=== PATIENT | female | born 1930 | race Caucasian/White ===

== ENCOUNTER 2016-11-19 21:11 | Inpatient (IN) | payer MEDICARE, OTHER ==
[~2016-11-19] VITALS: Ht 160 cm; Wt 51.3 kg
[2016-11-19] MEDS ORDERED: IV NS 0.9% 500 ML IV ONE (21:16)
[2016-11-19] MEDS ORDERED: IV SET PRIMARY 1 EA INFUS.SET MC ONE ×2 (21:16→22:10)
--- NOTE | 2016-11-19 21:16 | NUR ---
PT BIBRA FROM SNF TO ER BED 05. HERE FOR RESPIRATORY DISTRESS. NOTED TO BE HYPOXIC AND TACHY TODAY. PT WAS SATTING AT 80'S PER REPORT. ON NON REBREATHER REFRIGERATOR CRATER SATTING AT LOW 90'S. PT FEBRILE W/ RECTAL TEMP OF 101 REFRIGERATOR CRATER. GOWNED AND PLACED ON MONITOR. WILL MONITOR CLOSELY.
[2016-11-19] MEDS ORDERED: ACETAMINOPHEN 650 MG/SUPP.RECT RC ONE ×2 (21:17→21:30)
--- NOTE | 2016-11-19 21:18 | NUR ---
DR PERDOMO AT BEDSIDE FOR EVAL.
[2016-11-19] MEDS ORDERED: IV NS 0.9% 500 ML BAG IV ONE (21:30)
[2016-11-19 21:32] LABS: ABG BASE EXCESS 0.5 mmol/L; ABG OXYGEN SATURATION 97.4 % (92.0-98.5); ABG PCO2 38.7 mmHg (35.0-45.0); ABG PH 7.424 (7.350-7.450); ABG PO2 101.1 mmHg (75.0-100.0); AaDO2 573.2 mmHg; COHb 1.1 % (0.5-1.5); MetHb 0.4 % (0.0-1.5); O2Hb 95.9 % (94.0-97.0); SITE, ABG Right Radial; VENT MODE, BG NRB
--- NOTE | 2016-11-19 21:32 | NUR ---
LEAD RUBY ON RAILS DEVELOPER AT BEDSIDE FOR BLOOD DRAW.
[2016-11-19 21:39] LABS: BASOPHILS # (AUTO) 0.4 /CMM (0.0-0.2); BASOPHILS % (AUTO) 1.8 % (0.0-2.0); EOSINOPHILS # (AUTO) 0.2 /CMM (0.0-0.7); HEMATOCRIT 44 % (33-45); HEMOGLOBIN 13.9 g/dL (11.5-14.8); LYMPHOCYTES # (AUTO) 1.2 /CMM (0.8-4.8); LYMPHOCYTES % (AUTO) 5.4 % (20.0-44.0); MEAN CORPUSCULAR HEMOGLOBIN 29 PG (26.0-33.0); MEAN CORPUSCULAR HGB CONC 31 g/dl (31.0-36.0); MEAN CORPUSCULAR VOLUME 93 fL (82-100); MONOCYTES # (AUTO) 0.5 /CMM (0.1-1.30); MONOCYTES % (AUTO) 2.5 % (2.0-12.0); NEUTROPHILS # (AUTO) 19.2 /CMM (1.8-8.9); NEUTROPHILS % (AUTO) 89.3 % (43.0-81.0); PLATELET COUNT (AUTO) 383 /CMM (150-450); RDW COEFFICIENT OF VARIATION 14.8 (11.5-15.0); RED BLOOD CELL COUNT(AUTO) 4.77 MIL/uL (4.0-5.2); WHITE BLOOD COUNT (AUTO) 21.5 K/uL (4.3-11.0)
[2016-11-19 21:53] LABS: INR 1.14 (0.87-1.13)
[2016-11-19 21:57] LABS: TROPONIN I 0.086 ng/mL (0.00-0.056)
[2016-11-19 21:58] LABS: APPEARANCE,URINE Clear (CLEAR); BLOOD, URINE Trace-intact Ery/uL (NEGATIVE); COLOR,URINE Yellow (YELLOW); KETONES,URINE Trace (NEGATIVE); LEUKOCYTE ESTERASE ,URINE Negative (NEGATIVE); NITRITE, URINE Negative (NEGATIVE); PH,URINE 5.5 (5.0-8.0); PROTEIN,URINE 100 mg/dl (NEGATIVE); UGLUCOSE Negative (NEGATIVE)
[2016-11-19 21:59] LABS: BILIRUBIN,URINE SMALL (NEGATIVE)
[2016-11-19 22:07] LABS: BACTERIA,URINE Many /HPF (None Seen); RBC,URINE 0-2 /HPF (0-2); SQUAMOUS EPITHELIAL CELL,UR Few /HPF (None Seen)
[2016-11-19 22:10] LABS: POTASSIUM 3.5 mmol/L (3.5-5.1); SODIUM SERUM 166 mmol/L (136-145)
[2016-11-19] MEDS ORDERED: IV NS 0.9% 2,000 ML ONE (22:10)
[2016-11-19 22:11] LABS: BILIRUBIN,DIRECT 0.2 mg/dL (0.0-0.2); BILIRUBIN,TOTAL 0.8 mg/dL (0.2-1.0); CALCIUM, SERUM 9.6 mg/dL (8.5-10.1); CARBON DIOXIDE 28 mmol/L (21-32); CHLORIDE 128 mmol/L (98-107); CREATININE 1.3 mg/dL (0.6-1.3); GLUCOSE 182 mg/dL (74-106); UREA NITROGEN, BLOOD 65 mg/dL (7-18)
[2016-11-19 22:12] LABS: ALANINE AMINOTRANSFERASE 32 U/L (12-78); ALBUMIN 2.9 g/dL (3.4-5.0); ALKALINE PHOSPHATASE 64 U/L (46-116); ASPARTATE AMINOTRANSFERASE 24 U/L (15-37); B-TYPE NATRIURETIC PEPTIDE 1532 PG/ML (0-125)
--- NOTE | 2016-11-19 22:16 | NUR ---
DR.RABBANI MEDINA
[2016-11-19] MEDS ORDERED: PIPERACILLIN /TAZOBACTAM 3.375 G VIAL IV ONE (22:20)
[2016-11-19] MEDS ORDERED: IV SET PRIMARY PUMP SET 1 EA INFUS.SET MC ONE (22:20)
[2016-11-19] MEDS ORDERED: VANCOMYCIN 1 GM VIAL ONE (22:20)
[2016-11-19] MEDS ORDERED: IV NS 0.9% 250 ML IV ONE (22:27)
[2016-11-19] MEDS ORDERED: CT SWABBABLE VALVE TRANS SET 1 EA INFUS.SET MC ONE (22:28)
[2016-11-19] MEDS ORDERED: IOHEXOL-350 100 ML VIAL IV ONE (22:28)
[2016-11-19] MEDS ORDERED: IV NS 0.9% 1,000 ML IV ONE (22:30)
[2016-11-19] MEDS ORDERED: IV NS 0.9% 1,000 ML BAG IV ONE (22:30)
[2016-11-19] MEDS ORDERED: ASPIRIN 300 MG/SUPP.RECT RC ONE ×2 (22:30→22:31)
[2016-11-19] MEDS ORDERED: PIPERACILLIN /TAZOBACTAM 3.375 G in IV D5W 50 ML IV ONE (22:30)
[2016-11-19] MEDS ORDERED: VANCOMYCIN 1 GM in IV D5W 250 ML IV ONE (22:30)
--- NOTE | 2016-11-19 22:43 | NUR ---
PT TO RADIOLOGY FOR CT PULMONARY ANGIO VIA [facility].
--- NOTE | 2016-11-19 22:52 | NUR ---
REPORT GIVEN TO ARNIE. PT AWAITING TRANSFER TO FLOOR.
[2016-11-19 23:10] VITALS: BP 111/54
--- NOTE | 2016-11-19 23:10 | NUR ---
STEAM BOX OPERATOR NOTES: MD AWARE OF SODIUM, CHLORIDE, D-DIMER, AND TROPONIN I RESULTS. WILL CONTINUE TO MONITOR PT.
--- NOTE | 2016-11-19 23:10 | NUR ---
BRANCH OPERATION EVALUATION MANAGER NOTES: RECEIVED PT FROM LEONID GANDHI RN. PT ARRIVED WITH 2 BAGS OF IV 0.9% NS 1,000ML WIDE OPEN AND VANCO 1GM IN IV D5W AT 250 ML/HR. PT ALSO ARRIVED WITH NONREBREATHER MASK AND IS SET AT 15LPM. PT HAS IV ON L FOREARM #20G AND IS PATENT AND INTACT AND ALSO HAS IV ON R FOREARM #20G AND IS PATENT AND INTACT. CALL LIGHT WITHIN PT'S REACH. BED KEPT IN LOCKED, LOWEST POSITION, AND SIDE RAILS X 2 UP. WILL CONTINUE TO MONITOR PT.
[2016-11-19] MEDS ORDERED: ONDANSETRON HCL/PF 4 MG/2 ML VIAL IV PRN (23:30)
[2016-11-19] MEDS ORDERED: ACETAMINOPHEN 650 MG/SUPP.RECT RC PRN (23:30)
[2016-11-19] MEDS ORDERED: IV D5W 1,000 ML IV SCH (23:30)
[2016-11-20] VITALS (57 sets, daily range): BP systolic 80–124; BP diastolic 29–63
[2016-11-20] MEDS ORDERED: IV D5W 1,000 ML IV ONE (00:02)
[2016-11-20] MEDS ORDERED: PANTOPRAZOLE 40 MG VIAL ONE (00:03)
[2016-11-20] MEDS: PANTOPRAZOLE 40 MG VIAL IV SCH ×2 (00:12→23:06)
[2016-11-20] MEDS ORDERED: IV SET PRIMARY PUMP SET 1 EA INFUS.SET MC ONE ×4 (00:33→20:54)
[2016-11-20] MEDS ORDERED: ASPI-605 PO (00:38)
[2016-11-20] MEDS ORDERED: ACET325T53 PO (00:38)
[2016-11-20] MEDS ORDERED: AMLO5TAB4 PO (00:38)
[2016-11-20] MEDS ORDERED: MIRT15TA PO (00:38)
[2016-11-20] MEDS ORDERED: FAMO1TAB18 PO (00:38)
[2016-11-20] MEDS ORDERED: LEVO25TA7 PO (00:38)
[2016-11-20] MEDS ORDERED: MAGN400O6 PO (00:38)
[2016-11-20] MEDS ORDERED: ACET325T53 MC (00:38)
[2016-11-20] MEDS ORDERED: FERR-58 PO (00:38)
[2016-11-20] MEDS ORDERED: HALO0.5T4 PO (00:38)
[2016-11-20] MEDS ORDERED: MULT-1119 PO (00:38)
[2016-11-20] MEDS ORDERED: DONE10TA44 PO (00:38)
[2016-11-20] MEDS ORDERED: HEPA10009 SQ (00:38)
[2016-11-20] MEDS ORDERED: SECONDARY IV SET 1 EA INFUS.SET MC ONE ×2 (04:16→12:07)
[2016-11-20] MEDS ORDERED: PIPERACILLIN /TAZOBACTAM 3.375 G in IV D5W 50 ML IV SCH (05:00)
[2016-11-20] MEDS ORDERED: IV D5W 50 ML IV ONE (05:29)
[2016-11-20] MEDS ORDERED: PIPERACILLIN /TAZOBACTAM 3.375 G VIAL IV ONE (05:29)
--- NOTE | 2016-11-20 07:04 | NUR ---
AIRLINE ATTENDANT NOTES: BUSINESS SYSTEMS CONSULTANT INFORMED ME THAT PT WENT FROM SINUS RHYTHM TO A FIB. CHARGE NURSE ARNIE JIMENES. CALLED FOR DR. TERRAZAS AND SPOKE TO ALLISON. DR. TERRAZAS WAS PAGE.
--- NOTE | 2016-11-20 07:30 | NUR ---
FINANCIAL SERVICES ASSOCIATE NOTES: RECEIVED CALL BACK FROM DR. TERRAZAS. NOTIFIED THAT PT WENT FROM SINUS RHYTHM TO A FIB AND IS AWARE THAT PT IS DNR. DR ORDERED CARDIAC CONSULT, PULMONARY CONSULT, REPEAT CHEST X-RAY AND ABG, AND DIGOXIN 0.125 IV X 1 . PT KEPT CLEAN, DRY, AND COMFORTABLE. PT HAS IV ON L FOREARM #20G AND IS PATENT AND INTACT AND ALSO IV ON R FOREARM AND IS PATENT AND INTACT. FLUIDS INFUSING AT IV D5W 1,000ML AT 75 ML/HR. CALL LIGHT WITHIN PT'S REACH. BED KEPT IN LOCKED, LOWEST POSITION, AND SIDE RAILS X 2 UP. ENDORSED TO AM NURSE ABOUT SITUATION.
[2016-11-20] MEDS ORDERED: FAMO20TA8 PO (07:43)
[2016-11-20] MEDS ORDERED: AMIN30LI4 PO (07:43)
[2016-11-20] MEDS ORDERED: MULT-659 PO (07:43)
[2016-11-20] MEDS ORDERED: CHOL100044 PO (07:43)
[2016-11-20] MEDS ORDERED: DONE5TAB34 PO (07:43)
[2016-11-20 07:58] LABS: HEMATOCRIT 34 % (33-45); HEMOGLOBIN 10.7 g/dL (11.5-14.8); LYMPHOCYTES # (AUTO) 1.4 /CMM (0.8-4.8); LYMPHOCYTES % (AUTO) 10.8 % (20.0-44.0); MEAN CORPUSCULAR HEMOGLOBIN 30 PG (26.0-33.0); MEAN CORPUSCULAR HGB CONC 32 g/dl (31.0-36.0); MEAN CORPUSCULAR VOLUME 94 fL (82-100); MONOCYTES # (AUTO) 0.2 /CMM (0.1-1.30); MONOCYTES % (AUTO) 1.9 % (2.0-12.0); NEUTROPHILS # (AUTO) 11.3 /CMM (1.8-8.9); NEUTROPHILS % (AUTO) 87.3 % (43.0-81.0); PLATELET COUNT (AUTO) 257 /CMM (150-450); RED BLOOD CELL COUNT(AUTO) 3.57 MIL/uL (4.0-5.2)
[2016-11-20] MEDS ORDERED: DIGOXIN INJ 0.5 MG/2 ML AMPUL IV ONE (08:00)
--- NOTE | 2016-11-20 08:00 | NUR ---
REPORT RECEIVED. PM NURSE RECEIVED ORDERS FOR DIGOXIN IVP 0.125 MG X1 NOW. PT RHYTHM CURRENTLY AT . [facility]. ORDERS WERE NOTED AND WILL BE CARRIED OUT. PT NOTED WITH BLOOD PRESSURE OF 74/46. HR FLUCTUATING BETWEEN 130'S-160'S. PT ON NONREBREATHER MASK AT 15LPM. NOTIFIED RT FOR STAT ABG'S. Addendum: 11/20/16 at 0908 by ABRIL JIMÉNEZ RN DR. BAL MADE AWARE OF BP AND HEART RHYTHM. ORDERS TO ADMINISTER DIGOXIN, AND IF PT IS STILL IN A. FIB. TRANSFER TO ICU.
[2016-11-20 08:19] LABS: CALCIUM, SERUM 8.5 mg/dL (8.5-10.1); CREATININE 0.9 mg/dL (0.6-1.3); MAGNESIUM 2.1 mg/dL (1.8-2.4); PHOSPHORUS 2.1 mg/dL (2.5-4.9)
[2016-11-20 08:23] LABS: ABG BASE EXCESS -2.7 mmol/L; ABG OXYGEN SATURATION 98.8 % (92.0-98.5); ABG PCO2 30.7 mmHg (35.0-45.0); ABG PH 7.443 (7.350-7.450); AaDO2 275.2 mmHg; COHb 0.1 % (0.5-1.5); MetHb 1.2 % (0.0-1.5); O2Hb 97.5 % (94.0-97.0); SITE, ABG Left Brachial; VENT MODE, BG NRB
--- NOTE | 2016-11-20 08:28 | NUR ---
DIGOXIN 0.125MG IVP X1 ADMINISTERED. MD AWARE. HEART RHYTHM RECORDED VIA TELE MONITOR. DR. BAKER MADE AWARE. PT WAS SEEN BY DR. BAKER BEFORE TRANSFER TO ICU. WILL PLACE ORDERS WHEN PATIENT IN ICU.
[2016-11-20] MEDS ORDERED: FEE PK DOSING 1 MIN EA MC ONE (08:52)
[2016-11-20] MEDS ORDERED: IV NS 0.9% 1,000 ML IV PRN (08:55)
--- NOTE | 2016-11-20 08:55 | NUR ---
PT TRANSFERRED TO ICU AND ENDORSED CARE TO MARIA LUZ. NOTIFIED MARIA LUZ OF THE CRITICAL LAB RESULT OF SODIUM BEING AT 162. MD JIMENES.
[2016-11-20] MEDS ORDERED: AMIODARONE 900 MG in IV D5W 500 ML IV PRN ×2 (09:00→10:36)
[2016-11-20] MEDS ORDERED: AMIODARONE 150 MG in IV D5W 100 ML IV ONE (09:30)
[2016-11-20] MEDS: POTASSIUM CL. PREMIX PERIPHER. 50 ML IV SCH ×4 (09:40→13:31)
[2016-11-20 09:43] LABS: TROPONIN I 0.085 ng/mL (0.00-0.056)
[2016-11-20 09:44] LABS: THYROID STIMULATING HORMONE 1.324 uIU/mL (0.358-3.74)
[2016-11-20] MEDS: IV D5/0.45 NACL 1,000 ML IV PRN ×2 (10:07→22:33)
[2016-11-20] MEDS ORDERED: MAGNESIUM HYDROXIDE 30 ML UDC PO PRN (11:00)
[2016-11-20] MEDS ORDERED: AMIODARONE 900 MG in IV D5W 482 ML IV PRN (11:00)
--- NOTE | 2016-11-20 11:50 | NUR ---
INTENSIVE CARE ANAESTHETIST NOTE Noted patient with SBP 80's, made Dr. Sy aware, with order to given 500mL IV bolus, carried out, will continue to monitor.
[2016-11-20] MEDS ORDERED: IV NS 0.9% 500 ML IV STA (11:59)
[2016-11-20] MEDS ORDERED: Z GUARD REMEDY 2 OZ OINT TP PRN (13:00)
[2016-11-20] MEDS: PIPERACILLIN /TAZOBACTAM 2.25 G in IV D5W 50 ML IV SCH ×2 (13:24→21:00)
--- NOTE | 2016-11-20 15:58 | NUR ---
SUPERVISING PRODUCER NOTE 0850: Received patient from Tele unit for AFib RVR and fluctuating SBP 70-120's. Patient opens eyes but does not follow commands. Afib on and off, SR 70 to Afiib 120-160's. Awaiting Dr. Anderson's order. PIVs intact. Placed on 2LPM of O2 via NC, Sat 99%. 0930: S/E by dr. Suggs, with order to place NGT and start on 250mL water flushes q6 for high Sodium and insert Reyes cath. 1030: Able to place left NGT (verified with Monica GROVE) and Reyes cath, S/E by Dr. Sy, changed IVF from NS to D51/2 NS @ 100mLs/hr for elevated Na. 1200: IV Bolus done, patient with borderline SBP 90's. Will continue to monitor. 1300: Cleaned, patient, no BM at this time, placed patient on KCI mattress for sacral decub. 1530: No any significant changes noted at this time, continue Amio drip for on and off Afib. SBP borderline 90's.
[2016-11-20] MEDS ORDERED: K PHOS NEUTRAL 250 MG TABLET PO ONE (16:30)
[2016-11-20] MEDS ORDERED: VANCOMYCIN 500 MG in IV D5W 100 ML IV SCH (17:00)
[2016-11-20] MEDS ORDERED: NEUTRA PHOS 1 POWD.PACKET NG ONE (17:00)
[2016-11-20] MEDS ORDERED: IV NS 0.9% 500 ML IV ONE (18:00)
--- NOTE | 2016-11-20 18:04 | NUR ---
FORGE TENDER NOTE Paged Dr. Polanco and made aware patient still with episodes of SBP 80's, obtained order for 500mL IV bolus, insert PICC line and may start on Neosynephrine if bolus ineffective. Dr. Anderson also aware for low BP, agreed for Arsen. Spoke with Kaz via phone and given consent for PICC line insertion, witnessed by CN. Nurse sup aware for the PICC insertion, awaiting PICC line nurse.
--- NOTE | 2016-11-20 19:30 | NUR ---
ADMINISTRATIVE ASSISTANT COORDINATOR: RECEIVED PT ALERT AND AWAKE. ON 2L 02 VIA NC WT NO ACUTE DISTRESS. NO C/O PAIN AT THIS TIME. ABLE TO MAKE NEEDS KNOWN AND FOLLOW SIMPLE COMMANDS. UNCONTROLLED A. FIB ON MONITOR, WT AMIO DRIP RUNNING AT 0.5MG/MIN. RUNNING D5 1/2 NS AT 100ML/HR. F/C PATENT AND INTACT DRAINING JONATAN COLORED URINE. RT. NGT INTACT CLAMPED AND VERIFIED PLACEMENT. ONGOING ASSESSMENT FOR HYPOTENSION. NS 500ML BOLUS ADMINISTERED AND WILL START SUN NEEDED. FOLLOWED UP WT BAY STOCKER RE PICC LINE NURSE AND STILL AWAITING FEEDBACK AT THIS TIME. SAFETY PRECAUTION NOTED. WILL CONTINUE TO MONITOR. Addendum: 11/21/16 at 0125 by FRANCO LUNA RN CORRECTION: PT HAS BEEN SINUS RHYTHM WHEN RECEIVED. HOWEVER, A LOT OF ARTIFACTS ARE OBSERVED WT INTERMITTENT INCORRECT VERY HIGH HR MOST LIKELY DUE TO UPPER CHEST/EXTREMITY TREMORS. NGT IS ON THE LEFT NARE.
[2016-11-20 21:00] LABS: OSMOLALITY,URINE 835 mOS/kg (340-1090)
[2016-11-20] MEDS: HEPARIN SODIUM, PORCINE 5000 UNITS/1 ML VIAL SQ SCH (21:02)
[2016-11-20 21:07] LABS: URINE SODIUM, RANDOM 51 mmol/l (40-220)
[2016-11-20] MEDS ORDERED: MIRTAZAPINE 15 MG TABLET PO SCH (22:00)
[2016-11-20] MEDS ORDERED: DONEPEZIL 5 MG TABLET PO SCH (22:00)
[2016-11-20] MEDS: PHENYLEPHRINE 40 MG in IV D5W 250 ML IV PRN (22:32)
--- NOTE | 2016-11-20 22:35 | NUR ---
BALL TRUING MACHINE OPERATOR: STARTED NEOSYNEPHRINE AT 10MCG/MIN FOR SBP LESS THAN 90. FF-UP WT STOCK RECEIVER KOLE FOR PICC LINE NURSE AND SAID INSERTION WILL BE DONE IN AM. WILL INFUSE VIA PERIPHERAL LINE AND WILL MONITOR FOR S/S OF INFILTRATION. CHARGE NURSE ED MADE AWARE.
[2016-11-21] VITALS (96 sets, daily range): BP systolic 78–157; BP diastolic 37–117
[2016-11-21] MEDS: PIPERACILLIN /TAZOBACTAM 2.25 G in IV D5W 50 ML IV SCH ×2 (04:20→12:15)
[2016-11-21 05:00] LABS: EOSINOPHILS % (AUTO) 0.1 % (0.0-6.0); HEMATOCRIT 32 % (33-45); HEMOGLOBIN 10.4 g/dL (11.5-14.8); LYMPHOCYTES # (AUTO) 1.2 /CMM (0.8-4.8); LYMPHOCYTES % (AUTO) 5.7 % (20.0-44.0); MEAN CORPUSCULAR HEMOGLOBIN 30 PG (26.0-33.0); MEAN CORPUSCULAR HGB CONC 32 g/dl (31.0-36.0); MEAN CORPUSCULAR VOLUME 94 fL (82-100); MONOCYTES # (AUTO) 0.1 /CMM (0.1-1.30); MONOCYTES % (AUTO) 0.2 % (2.0-12.0); NEUTROPHILS # (AUTO) 19.5 /CMM (1.8-8.9); PLATELET COUNT (AUTO) 275 /CMM (150-450); RDW COEFFICIENT OF VARIATION 15.3 (11.5-15.0); RED BLOOD CELL COUNT(AUTO) 3.45 MIL/uL (4.0-5.2); WHITE BLOOD COUNT (AUTO) 20.7 K/uL (4.3-11.0)
[2016-11-21 05:14] LABS: ALBUMIN 1.9 g/dL (3.4-5.0); BILIRUBIN,TOTAL 0.8 mg/dL (0.2-1.0); CALCIUM, SERUM 7.8 mg/dL (8.5-10.1); CREATININE 0.7 mg/dL (0.6-1.3); MAGNESIUM 1.4 mg/dL (1.8-2.4); PHOSPHORUS 1.9 mg/dL (2.5-4.9); POTASSIUM 3.1 mmol/L (3.5-5.1); TOTAL PROTEIN, SERUM 5.5 g/dL (6.4-8.2)
[2016-11-21 05:16] LABS: TROPONIN I 0.056 ng/mL (0.00-0.056)
--- NOTE | 2016-11-21 05:30 | NUR ---
VESSEL ORDINARY SEAMAN: STILL ON NEOSYNEPHRINE AT 10MCG/MIN WT NO S/S OF INFILTRATION ON IV SITE. NSR WT HR IN THE 60s. ALERT AND AWAKE. ABLE TALK CLEARLY WT CONFUSION & OBEY SIMPLE COMMANDS. HAD SMALL AMT. OF DARK BROWN (ALMOST BLACK) SOFT FORMED STOOL DURING THE SHIFT. BED BATH GIVEN. TEMP AT 0400=99.4 (AXILLA) WHILE WRAPPED IN BLANKET. BLANKET REMOVED AND RECHECKED AT 30MINS WT 98.1. WILL CONTINUE TO MONITOR.
[2016-11-21 05:43] LABS: BAND % (MANUAL) 1 % (0.0-5.0); EOSINOPHILS % (MANUAL) 1 % (0-4); LYMPHOCYTES % (MANUAL) 7 % (16-48); MONOCYTES % (MANUAL) 3 % (0-11.0); NEUTROPHILS % (MANUAL) 88 (42-76)
--- NOTE | 2016-11-21 06:10 | NUR ---
LEADERSHIP RECRUITER: NOTED WT ANOTHER SMALL AMT. OF DARK BROWN (ALMOST BLACK) SOFT STOOL. SPECIMEN COLLECTED AND WILL ENDORSE TO DAY SHIFT TO OBTAIN ORDER FOR STOOL FOR O.B. PT. REMAINED ALERT AND AWAKE. STILL ON 2L 02 VIA NC WT NO ACUTE DISTRESS. NO C/O PAIN OR EVIDENCE OF DISCOMFORT. SAFETY PRECAUTION NOTED AT ALL TIMES.
[2016-11-21] MEDS ORDERED: Magnesium 1GM/D5W 100ML PREMIX 100 ML IV SCH ×4 (07:13→10:30)
--- NOTE | 2016-11-21 07:45 | NUR ---
ICU/RN PT IS IN THE BED AWAKE,ALERT-1.HAS DEMENTIA.ON 2L N/C SAT O2-98%.ON AMIODARONE DRIP.AND NEOSYNEPHRINE DRIP.NG TUBE CLAMPED.PT IS NPO.F/C DRAINING WITH MINIMAL AMOUNT YELLOW URINE.REDNESS ON DARLENE AREA AND LOWER BACK NOTED,WOUND ON SACRAL AREA COVERED WITH DRESSING.PT HAS DARK GREEN-BLACK COLOR STOOL. AM CARE PROVIDED.REPOSITION FOR COMFORT.
[2016-11-21] MEDS ORDERED: POTASSIUM CHLORIDE 20 MEQ TAB.PRT.SR PO SCH (08:00)
[2016-11-21] MEDS: CHOLECALCIFEROL 1,000 UNIT TABLET (VIT D3) PO SCH (08:34)
[2016-11-21] MEDS: PROSOURCE / PROSTAT (PYXIS) 30 ML UDC GT SCH (08:34)
[2016-11-21] MEDS: AMIODARONE HCL 200 MG TABLET PO SCH ×2 (08:35→16:22)
[2016-11-21] MEDS: FAMOTIDINE (20 MG) 20 MG TABLET PO SCH (08:35)
[2016-11-21] MEDS: MULTIVIT, IRON, MIN NO. 8, FA 1 TAB TABLET PO SCH (08:35)
[2016-11-21] MEDS: LEVOTHYROXINE SODIUM 25 MCG TABLET PO SCH (08:35)
[2016-11-21] MEDS: ASPIRIN EC 81 MG TABLET.DR PO SCH (08:35)
[2016-11-21] MEDS: HEPARIN SODIUM, PORCINE 5000 UNITS/1 ML VIAL SQ SCH ×2 (08:37→20:39)
[2016-11-21] MEDS ORDERED: AMLODIPINE BESYLATE 5 MG TABLET PO SCH (09:00)
[2016-11-21] MEDS ORDERED: POTASSIUM CHLORIDE 20 MEQ POWDER PACKET GT ONE (09:00)
[2016-11-21] MEDS ORDERED: HALOPERIDOL 1 MG TABLET PO SCH (09:00)
[2016-11-21] MEDS ORDERED: FERROUS SULFATE (325 MG) 325 MG/TAB TABLET PO SCH (09:00)
--- NOTE | 2016-11-21 09:00 | NUR ---
ICU/RN DUE MEDS ARE GIVEN ORDERED.LABS REVIEW.MD NOTIFIED.NEW ORDERS RECEIVED.NEW PICC LINE ON THE RIGHT UPPER ARM PLACED.
[2016-11-21] MEDS ORDERED: SECONDARY IV SET 1 EA INFUS.SET MC ONE ×2 (09:09→19:07)
[2016-11-21] MEDS: Magnesium 1GM/D5W 100ML PREMIX 100 ML IV SCH ×2 (09:25→10:31)
[2016-11-21] MEDS: HYDROGEL DRESSING 90 GM TUBE TP SCH (09:25)
[2016-11-21] MEDS ORDERED: Sodium Phosphate 15 MMOL in IV D5W 250 ML IV ONE (10:00)
--- NOTE | 2016-11-21 10:30 | NUR ---
ICU/RN AMIODARONE DRIP IS OVER .
[2016-11-21] MEDS ORDERED: IV SET PRIMARY PUMP SET 1 EA INFUS.SET MC ONE (11:45)
[2016-11-21] MEDS: VANCOMYCIN 0.75 GM in IV D5W 250 ML IV SCH (12:14)
[2016-11-21] MEDS: IV D5/0.45 NACL 1,000 ML IV PRN ×2 (14:05→23:58)
[2016-11-21] MEDS: DAKINS QUARTER STRENGTH (0.125%) 480 ML BOTTLE TOP SCH (15:20)
--- NOTE | 2016-11-21 16:10 | NUR ---
ICU/RN PM CARE PROVIDED.WOUND DRESSING DONE ORDERED.DUE MEDS ARE GIVEN ORDERED.REPOSITION FOR COMFORT.
[2016-11-21] MEDS: LACTOBACILLUS RHAMNOSUS GG 1 EACH CAP.SPRINK GT SCH (16:21)
[2016-11-21] MEDS: PHENYLEPHRINE 40 MG in IV D5W 250 ML IV PRN ×2 (17:08→20:42)
[2016-11-21] MEDS: MEROPENEM 500 MG in IV NS 0.9% 50 ML IV SCH (19:11)
--- NOTE | 2016-11-21 19:30 | NUR ---
REPEATER OPERATOR: RECEIVED PT ALERT AND AWAKE, VERBALLY RESPONSIVE AND ABLE TO FOLLOW SIMPLE COMMANDS. ON 2L OW VIA NC WT NO ACUTE DISTRESS. NO C/O PAIN OR EVIDENCE OF DISCOMFORT. SR ON ALIGNER BARREL AND RECEIVER. CONTINUE ON NEOSYNEPHRINE AT 80MCG/MIN TO KEEP SBP ABOVE 90. TOLERATING D5 1/2 NS AT 100ML/HR WT VIA JOSELYN PICC LINE. NO REDNESS/SWELLING NOTED. LEFT NGT CLAMPED AT THIS TIME. GOOD URINE OUTPUT VIA F/C. HOB ELEVATED. SAFETY PRECAUTION NOTED. WILL CONTINUE TO MONITOR.
[2016-11-21] MEDS: METRONIDAZOLE 500 MG TABLET PO SCH (20:38)
--- NOTE | 2016-11-21 22:30 | NUR ---
FUNERAL SERVICE MANAGER: HAD EPISODE OF MODERATE AMT. DARK BROWN SOFT-LIQUID STOOL. SPECIMEN COLLECTED FOR C-DIFF. & SACRAL WOUND CULTURE. GOOD SKIN/DARLENE CARE RENDERED AND TOLERATED WELL. REPOSITIONED FOR COMFORT.
[2016-11-21] MEDS: PANTOPRAZOLE 40 MG VIAL IV SCH (23:57)
[2016-11-22] VITALS (93 sets, daily range): BP systolic 68–141; BP diastolic 17–71
[2016-11-22 04:47] LABS: EOSINOPHILS % (AUTO) 0.1 % (0.0-6.0); HEMATOCRIT 30 % (33-45); HEMOGLOBIN 9.6 g/dL (11.5-14.8); LYMPHOCYTES # (AUTO) 1.7 /CMM (0.8-4.8); LYMPHOCYTES % (AUTO) 7.3 % (20.0-44.0); MEAN CORPUSCULAR HEMOGLOBIN 30 PG (26.0-33.0); MEAN CORPUSCULAR HGB CONC 33 g/dl (31.0-36.0); MEAN CORPUSCULAR VOLUME 93 fL (82-100); MONOCYTES # (AUTO) 0.3 /CMM (0.1-1.30); MONOCYTES % (AUTO) 1.3 % (2.0-12.0); NEUTROPHILS # (AUTO) 21.7 /CMM (1.8-8.9); NEUTROPHILS % (AUTO) 91.3 % (43.0-81.0); PLATELET COUNT (AUTO) 291 /CMM (150-450); RDW COEFFICIENT OF VARIATION 14.9 (11.5-15.0); RED BLOOD CELL COUNT(AUTO) 3.19 MIL/uL (4.0-5.2); WHITE BLOOD COUNT (AUTO) 23.8 K/uL (4.3-11.0)
[2016-11-22 05:08] LABS: ALBUMIN 1.5 g/dL (3.4-5.0); BILIRUBIN,TOTAL 0.5 mg/dL (0.2-1.0); CALCIUM, SERUM 7.4 mg/dL (8.5-10.1); CREATININE 0.6 mg/dL (0.6-1.3); POTASSIUM 3.6 mmol/L (3.5-5.1); TOTAL PROTEIN, SERUM 4.9 g/dL (6.4-8.2)
[2016-11-22 05:12] LABS: TROPONIN I 0.076 ng/mL (0.00-0.056)
[2016-11-22] MEDS: VANCOMYCIN 0.75 GM in IV D5W 250 ML IV SCH ×2 (05:20→23:35)
[2016-11-22] MEDS: METRONIDAZOLE 500 MG TABLET PO SCH ×3 (05:21→20:27)
[2016-11-22] MEDS: MEROPENEM 500 MG in IV NS 0.9% 50 ML IV SCH ×2 (06:11→17:50)
[2016-11-22] MEDS: PHENYLEPHRINE 40 MG in IV D5W 250 ML IV PRN ×2 (06:13→20:58)
--- NOTE | 2016-11-22 06:50 | NUR ---
GENERAL ROAD PRODUCTION MANAGER: NO CANDELARIA AT THIS TIME. VS WITHIN HER BASELINE. NO ACUTE DISTRESS, NO C/O PAIN OR EVIDENCE OF DISCOMFORT. REMAINED AFEBRILE THROUGHOUT THE SHIFT.
[2016-11-22] MEDS: FAMOTIDINE (20 MG) 20 MG TABLET PO SCH (08:57)
[2016-11-22] MEDS: LEVOTHYROXINE SODIUM 25 MCG TABLET PO SCH (08:57)
[2016-11-22] MEDS: HYDROGEL DRESSING 90 GM TUBE TP SCH (08:57)
[2016-11-22] MEDS: CHOLECALCIFEROL 1,000 UNIT TABLET (VIT D3) PO SCH (08:57)
[2016-11-22] MEDS: ASPIRIN EC 81 MG TABLET.DR PO SCH (08:57)
[2016-11-22] MEDS: MULTIVIT, IRON, MIN NO. 8, FA 1 TAB TABLET PO SCH (08:57)
[2016-11-22] MEDS: PROSOURCE / PROSTAT (PYXIS) 30 ML UDC GT SCH (08:57)
[2016-11-22] MEDS: LACTOBACILLUS RHAMNOSUS GG 1 EACH CAP.SPRINK GT SCH ×2 (08:57→16:12)
[2016-11-22] MEDS: DAKINS QUARTER STRENGTH (0.125%) 480 ML BOTTLE TOP SCH (08:58)
[2016-11-22] MEDS: AMIODARONE HCL 200 MG TABLET PO SCH ×2 (08:58→16:12)
[2016-11-22] MEDS: HEPARIN SODIUM, PORCINE 5000 UNITS/1 ML VIAL SQ SCH ×2 (08:59→20:29)
--- NOTE | 2016-11-22 09:00 | NUR ---
MANUFACTURING ENGINEER PAINT Informed Dr. Ludwig of patient NPO status. ordered swallow evaluation and to order recommended diet.
[2016-11-22] MEDS ORDERED: Sodium Phosphate 15 MMOL in IV D5W 250 ML IV ONE (14:00)
--- NOTE | 2016-11-22 16:12 | NUR ---
ASSOCIATE CHEMIST Amiodarone PO held due to HR. Bradycardia as low as 40's. Blood pressure normotensive with low dose neosynephrine. Unable to tolerate titration.
[2016-11-22] MEDS ORDERED: IV NS 0.9% 250 ML IV ONE (16:18)
--- NOTE | 2016-11-22 19:30 | NUR ---
RN INITIAL NOTES RECEIVED PT AWAKE ON BED, A/O X1 ONLY, PASSIVE, SELECTIVELY ON VERBAL RESPONSES. ON 2L NASAL CANNULA SATURATING WELL, NO S/S OF RESP DISTRESS. CURRENTLY SR ON THE MONITOR, HR 60'S. ON SUN DRIP @ 25MCG/MIN TO KEEP SBP > 90. URBAN CATH INTACT. LEFT NARE NGT IS CLAMPED. PT HAS LEFT FOREARM 20G, LEFT ARM 18G, AND RIGHT UPPER ARM PICC, ALL FLUSHED AND PATENT, NO S/S OF INFILTRATION/INFECTION, DRESSINGS CDI. BED LOW AND LOCKED, SIDERAILS UP, CALL LIGHT WITHIN REACH. WILL MONITOR
[2016-11-22] MEDS: PANTOPRAZOLE 40 MG VIAL IV SCH (23:35)
[2016-11-23] VITALS (99 sets, daily range): BP systolic 59–144; BP diastolic 31–72
[2016-11-23 04:44] LABS: EOSINOPHILS # (AUTO) 0.1 /CMM (0.0-0.7); EOSINOPHILS % (AUTO) 0.3 % (0.0-6.0); HEMATOCRIT 30 % (33-45); HEMOGLOBIN 9.7 g/dL (11.5-14.8); LYMPHOCYTES # (AUTO) 1.8 /CMM (0.8-4.8); MEAN CORPUSCULAR HEMOGLOBIN 30 PG (26.0-33.0); MEAN CORPUSCULAR HGB CONC 33 g/dl (31.0-36.0); MEAN CORPUSCULAR VOLUME 92 fL (82-100); MONOCYTES # (AUTO) 0.3 /CMM (0.1-1.30); MONOCYTES % (AUTO) 1.1 % (2.0-12.0); NEUTROPHILS # (AUTO) 20.4 /CMM (1.8-8.9); NEUTROPHILS % (AUTO) 90.6 % (43.0-81.0); PLATELET COUNT (AUTO) 299 /CMM (150-450); RDW COEFFICIENT OF VARIATION 15.4 (11.5-15.0); RED BLOOD CELL COUNT(AUTO) 3.27 MIL/uL (4.0-5.2); WHITE BLOOD COUNT (AUTO) 22.6 K/uL (4.3-11.0)
[2016-11-23] MEDS: MEROPENEM 500 MG in IV NS 0.9% 50 ML IV SCH ×2 (05:01→17:26)
[2016-11-23] MEDS: METRONIDAZOLE 500 MG TABLET PO SCH ×3 (05:01→20:03)
[2016-11-23 05:02] LABS: CALCIUM, SERUM 7.6 mg/dL (8.5-10.1); CREATININE 0.5 mg/dL (0.6-1.3); MAGNESIUM 1.7 mg/dL (1.8-2.4); PHOSPHORUS 2.4 mg/dL (2.5-4.9)
[2016-11-23 05:21] LABS: POTASSIUM 2.5 mmol/L (3.5-5.1)
[2016-11-23] MEDS ORDERED: POTASSIUM CHLORIDE 20 MEQ TAB.PRT.SR PO SCH (06:00)
[2016-11-23] MEDS ORDERED: Magnesium 1GM/D5W 100ML PREMIX 100 ML IV ONE (06:06)
[2016-11-23] MEDS ORDERED: POTASSIUM CHLORIDE 20 MEQ POWDER PACKET ONE (06:06)
[2016-11-23] MEDS ORDERED: NEUTRA PHOS 1 POWD.PACKET ONE (06:07)
[2016-11-23] MEDS ORDERED: SECONDARY IV SET 1 EA INFUS.SET MC ONE ×2 (06:11→12:31)
[2016-11-23] MEDS: NEUTRA PHOS 1 POWD.PACKET PO SCH ×2 (06:18→13:51)
[2016-11-23] MEDS: Magnesium 1GM/D5W 100ML PREMIX 100 ML IV SCH ×2 (06:18→08:04)
[2016-11-23] MEDS ORDERED: POTASSIUM CHLORIDE 20 MEQ POWDER PACKET GT ONE ×3 (06:30→08:30)
--- NOTE | 2016-11-23 06:30 | NUR ---
RN CLOSING NOTES PAGED ON-CALL DR FREDDIE LOPES TO NOTIFY CRITICAL LAB VALUE. DR BAKER ON THE FLOOR AND NOTIFIED OF K 2.[address] BAKER PUT IN NEW ORDERS. WILL CARRY OUT. PT REMAINS STABLE OF THE MOMENT. ALL DUE MEDS GIVEN, AM CARE PROVIDED. WILL ENDORSE CONTINUITY OF CARE TO AM RN
[2016-11-23] MEDS: FAMOTIDINE (20 MG) 20 MG TABLET PO SCH (08:05)
[2016-11-23] MEDS: MULTIVIT, IRON, MIN NO. 8, FA 1 TAB TABLET PO SCH (08:05)
[2016-11-23] MEDS: AMIODARONE HCL 200 MG TABLET PO SCH ×2 (08:05→16:16)
[2016-11-23] MEDS: LEVOTHYROXINE SODIUM 25 MCG TABLET PO SCH (08:05)
[2016-11-23] MEDS: LACTOBACILLUS RHAMNOSUS GG 1 EACH CAP.SPRINK GT SCH ×2 (08:05→17:26)
[2016-11-23] MEDS: ASPIRIN EC 81 MG TABLET.DR PO SCH (08:05)
[2016-11-23] MEDS: CHOLECALCIFEROL 1,000 UNIT TABLET (VIT D3) PO SCH (08:05)
[2016-11-23] MEDS: HEPARIN SODIUM, PORCINE 5000 UNITS/1 ML VIAL SQ SCH ×2 (08:06→20:04)
[2016-11-23] MEDS: PROSOURCE / PROSTAT (PYXIS) 30 ML UDC GT SCH (08:06)
[2016-11-23] MEDS: DAKINS QUARTER STRENGTH (0.125%) 480 ML BOTTLE TOP SCH (08:07)
[2016-11-23] MEDS: HYDROGEL DRESSING 90 GM TUBE TP SCH (08:07)
[2016-11-23] MEDS ORDERED: SILVER NITRATE APPLICATOR 1 EA BOX TP STA (12:13)
[2016-11-23] MEDS ORDERED: LIDOCAINE 1%-EPI 1:100,000 20 ML VIAL TP STA (12:13)
[2016-11-23] MEDS ORDERED: IV SET PRIMARY PUMP SET 1 EA INFUS.SET MC ONE (12:26)
[2016-11-23] MEDS: ALBUMIN 25% 25 GM in PREMIX 1 EA IV SCH ×3 (12:31→23:01)
--- NOTE | 2016-11-23 14:40 | NUR ---
WOUND CARE CONSULT: PT SLEEPING AT THIS TIME. WOUND ASSESSMENT NOT DONE AT THIS TIME TO ALLOW PT REST. PT FOLLOWED BY SURGICAL TEAM AND ORDERS FOR WOUND CARE AND SKIN PROTECTION WERE WRITTEN BY TEAM. PT ON FIRST STEP MATTRESS. WILL SEE PT PT CONDITION PERMITS. MD IN AGREEMENT WITH PLAN OF CARE.
--- NOTE | 2016-11-23 16:20 | NUR ---
MANAGER NEONATAL NOTE 0720: Received patient awake, alert to name, able to answer to simple questions, noted with BUE stiffness. On 2LPM of O2 via NC tolerated well. SB 50's on the monitor. With left NGT intact, clamped. With Reyes cath intact, noted with clear frank colored urine drained to BSD. With JOSELYN PICC and PIVs intact. On 20mcg of Arsen. 0830: Replaced K 2.5 with 20mEq x3 doses and Mg 1.7 with 2 bags, am meds given. 1030: Dr. Fontenot made aware that unable to do left side thora for Heparin given in am, said may do tomorrow. 1130: S/E by Dr. Sy, ordered to remove NGT and start on Pureed diet. Removed NGT, patient tolerated well. 1230: S/E by for swallow eval, served lunch but with episodes of pocketing foods on the mouth, Dr. Sy made aware, said will try until tomorrow and will see if needed NGT feeding. Will give Albumin as ordered. 1330: Dr. Nieves rendered sacral wound debridement and send specimen to lab for wound culture. Noted with dark greenish soft stool. 1615: No any significant changes noted at this time, Still noted with humberto 50's, 40's at times. On 20mcq of Arsen, unable to tolerate off Arsen for sustaining SBP 80's without Arsen, will keep on low dose for now.
[2016-11-23] MEDS ORDERED: IV NS 0.9% 250 ML IV ONE (18:01)
[2016-11-23] MEDS: VANCOMYCIN 0.75 GM in IV D5W 250 ML IV SCH (18:06)
[2016-11-23] MEDS: PHENYLEPHRINE 40 MG in IV D5W 250 ML IV PRN (18:34)
--- NOTE | 2016-11-23 19:30 | NUR ---
RN INITIAL NOTES RECEIVED PT AWAKE ON BED, A/O X1 ONLY, PASSIVE, SELECTIVELY ON VERBAL RESPONSES. ON 2L NASAL CANNULA SATURATING WELL, NO S/S OF RESP DISTRESS. CURRENTLY SR ON THE MONITOR, HR 70'S. ON SUN DRIP @ 20MCG/MIN TO KEEP SBP > 90. URBAN CATH INTACT. PATIENT HAS POOR APPETITE, OFFERED PUREED FOOD BUT ONLY TOOK ONE SPOONFUL. PT HAS LEFT FOREARM 20G, LEFT ARM 18G, AND RIGHT UPPER ARM PICC, ALL FLUSHED AND PATENT, NO S/S OF INFILTRATION/INFECTION, DRESSINGS CDI. BED LOW AND LOCKED, SIDERAILS UP, CALL LIGHT WITHIN REACH. WILL MONITOR
[2016-11-23] MEDS: BOOST PLUS FOOD-CHOCLATE 237 ML BOX PO SCH (20:03)
--- NOTE | 2016-11-23 20:05 | NUR ---
RN NOTES HELD SCHEDULED HEPARIN SQ FOR SCHEDULED SURGERY TOMORROW
[2016-11-23] MEDS: PANTOPRAZOLE 40 MG VIAL IV SCH (23:01)
[2016-11-24] VITALS (89 sets, daily range): BP systolic 71–158; BP diastolic 33–75
[2016-11-24 04:50] LABS: BASOPHILS % (AUTO) 0.1 % (0.0-2.0); EOSINOPHILS # (AUTO) 0.1 /CMM (0.0-0.7); EOSINOPHILS % (AUTO) 0.7 % (0.0-6.0); HEMATOCRIT 29 % (33-45); HEMOGLOBIN 9.6 g/dL (11.5-14.8); LYMPHOCYTES # (AUTO) 1.9 /CMM (0.8-4.8); MEAN CORPUSCULAR HEMOGLOBIN 30 PG (26.0-33.0); MEAN CORPUSCULAR HGB CONC 33 g/dl (31.0-36.0); MEAN CORPUSCULAR VOLUME 91 fL (82-100); MONOCYTES # (AUTO) 0.5 /CMM (0.1-1.30); MONOCYTES % (AUTO) 2.6 % (2.0-12.0); NEUTROPHILS # (AUTO) 14.9 /CMM (1.8-8.9); NEUTROPHILS % (AUTO) 85.6 % (43.0-81.0); PLATELET COUNT (AUTO) 294 /CMM (150-450); RDW COEFFICIENT OF VARIATION 14.5 (11.5-15.0); RED BLOOD CELL COUNT(AUTO) 3.21 MIL/uL (4.0-5.2); WHITE BLOOD COUNT (AUTO) 17.4 K/uL (4.3-11.0)
[2016-11-24 05:02] LABS: ALBUMIN 3.1 g/dL (3.4-5.0); BILIRUBIN,TOTAL 0.6 mg/dL (0.2-1.0); CALCIUM, SERUM 8.2 mg/dL (8.5-10.1); CREATININE 0.6 mg/dL (0.6-1.3); MAGNESIUM 2.2 mg/dL (1.8-2.4); PHOSPHORUS 2.6 mg/dL (2.5-4.9); POTASSIUM 3.7 mmol/L (3.5-5.1); TOTAL PROTEIN, SERUM 5.5 g/dL (6.4-8.2)
[2016-11-24] MEDS ORDERED: IV NS 0.9% 250 ML IV ONE (05:04)
[2016-11-24] MEDS: MEROPENEM 500 MG in IV NS 0.9% 50 ML IV SCH ×2 (05:11→17:26)
[2016-11-24] MEDS: METRONIDAZOLE 500 MG TABLET PO SCH ×2 (05:11→12:30)
[2016-11-24] MEDS: ALBUMIN 25% 25 GM in PREMIX 1 EA IV SCH (05:11)
--- NOTE | 2016-11-24 06:30 | NUR ---
RN CLOSING NOTES PT REMAINS STABLE OF THE MOMENT. ALL DUE MEDS GIVEN, AM CARE PROVIDED. WILL ENDORSE CONTINUITY OF CARE TO AM RN
--- NOTE | 2016-11-24 08:22 | NUR ---
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 THERE IS UNDERMINING OF 3CM FROM 6 OCLOCK TO 12 OCLOCK POSITION. PT ALSO NOTED TO HAVE RT DORSAL FOOT DRY ABRASION AND RT MEDIAL FOOT SUSPECTED DEEP TISSUE INJURY, INTACT, BOTH PRESENT ON ADMISSION. 3+ PITTING EDEMA NOTED TO BILATERAL FEET. PT FOLLOWED BY SURGEON & DPM. WOUND CARE ORDERS PER SURGICAL TEAM. WILL SEE PRN. ALL SKIN PROTECTION MEASURES IN PLACE AND DISCUSSED WITH NURSING STAFF. IN AGREEMENT WITH PLAN OF CARE. Addendum: 11/24/16 at 0825 by KATIUSKA HARVEY WNDNU Amended: Links added.
[2016-11-24] MEDS: FAMOTIDINE (20 MG) 20 MG TABLET PO SCH (08:44)
[2016-11-24] MEDS: BOOST PLUS FOOD-CHOCLATE 237 ML BOX PO SCH ×2 (08:44→17:26)
[2016-11-24] MEDS: PROSOURCE / PROSTAT (PYXIS) 30 ML UDC GT SCH (08:44)
[2016-11-24] MEDS: CHOLECALCIFEROL 1,000 UNIT TABLET (VIT D3) PO SCH (08:44)
[2016-11-24] MEDS: MULTIVIT, IRON, MIN NO. 8, FA 1 TAB TABLET PO SCH (08:44)
[2016-11-24] MEDS: DAKINS QUARTER STRENGTH (0.125%) 480 ML BOTTLE TOP SCH (08:45)
[2016-11-24] MEDS: AMIODARONE HCL 200 MG TABLET PO SCH ×2 (08:45→17:00)
[2016-11-24] MEDS: LACTOBACILLUS RHAMNOSUS GG 1 EACH CAP.SPRINK GT SCH ×2 (08:45→17:26)
[2016-11-24] MEDS: LEVOTHYROXINE SODIUM 25 MCG TABLET PO SCH (08:45)
[2016-11-24] MEDS: HYDROGEL DRESSING 90 GM TUBE TP SCH (08:46)
[2016-11-24] MEDS ORDERED: IV SET PRIMARY PUMP SET 1 EA INFUS.SET MC ONE ×2 (11:04→18:42)
[2016-11-24] MEDS: IV NS 0.9% 1,000 ML IV PRN ×2 (11:17→20:36)
[2016-11-24] MEDS: ASPIRIN EC 81 MG TABLET.DR PO SCH (11:19)
[2016-11-24] MEDS: HEPARIN SODIUM, PORCINE 5000 UNITS/1 ML VIAL SQ SCH ×2 (11:19→20:38)
[2016-11-24] MEDS: VANCOMYCIN 0.75 GM in IV D5W 250 ML IV SCH (12:30)
--- NOTE | 2016-11-24 12:52 | NUR ---
MAINTENANCE AND CUSTODIAN SUPERVISOR NOTE 0720: Received patient awake, alert and oriented to self, able to follow some simple commands. With 2LPM of O2 via NC. With JOSELYN PICC and PIVs intact. on Arsen @ 20mcg, will titrate accordingly. SB 50's on the monitor. With norman cath intact, noted with clear yellow urine drained to BSD. 0830: S/E by Dr. andreson, no new order at this time. 0900: Fed patient but only able to get 25 % of the breakfast tray with the boost. 1100: Started patient on IVF NS @ [address] Anderson. 1240: S/E by Dr. Ludwig, made aware that patient still with poor intake and ST recommended NGT feeding for the mean time but MD said will continue feeding with full liquids for now because she is pocketing some pureed food at times. Able to get 30% of the lunch tray. Will continue to monitor patient and titrate Arsen.
[2016-11-24] MEDS: PHENYLEPHRINE 40 MG in IV D5W 250 ML IV PRN (19:13)
--- NOTE | 2016-11-24 20:00 | NUR ---
ICU/RN- PT IN BED ALERT TO NAME, CONFUSED. ABLE TO FOLLOW SIMPLE COMMANDS. ON MONITOR W/ BRADYCARDIA HR IN THE 50S. ON O2 2L/MIN VIA NC W/ O2 SAT 99%. RESP EVEN AND UNLABORED. PT WAS PUT BACK ON SUN 20MCG/MIN FOR SBP IN THE 80S. TOLERATING WELL. WILL TITRATE PER PROTOCOL. URBAN IN PLACE W/ CLEAR AND YELLOW URINE DRAINING WELL TO GRAVITY. REPOSITIONED FOR COMFORT. BED LOW AND IN LOCKED POSITION. WILL MONITOR PT ACCORDINGLY.
[2016-11-24] MEDS: PANTOPRAZOLE 40 MG VIAL IV SCH (23:06)
[2016-11-25] VITALS (93 sets, daily range): BP systolic 82–139; BP diastolic 40–80
[2016-11-25 04:44] LABS: CALCIUM, SERUM 7.5 mg/dL (8.5-10.1); CREATININE 0.5 mg/dL (0.6-1.3); MAGNESIUM 1.7 mg/dL (1.8-2.4); PHOSPHORUS 2.1 mg/dL (2.5-4.9); POTASSIUM 3.5 mmol/L (3.5-5.1)
[2016-11-25 04:46] LABS: BASOPHILS % (AUTO) 0.1 % (0.0-2.0); EOSINOPHILS # (AUTO) 0.2 /CMM (0.0-0.7); EOSINOPHILS % (AUTO) 1.5 % (0.0-6.0); HEMATOCRIT 29 % (33-45); HEMOGLOBIN 9.2 g/dL (11.5-14.8); LYMPHOCYTES # (AUTO) 1.7 /CMM (0.8-4.8); LYMPHOCYTES % (AUTO) 14.3 % (20.0-44.0); MEAN CORPUSCULAR HEMOGLOBIN 30 PG (26.0-33.0); MEAN CORPUSCULAR HGB CONC 32 g/dl (31.0-36.0); MEAN CORPUSCULAR VOLUME 92 fL (82-100); MONOCYTES # (AUTO) 0.4 /CMM (0.1-1.30); MONOCYTES % (AUTO) 3.4 % (2.0-12.0); NEUTROPHILS # (AUTO) 9.5 /CMM (1.8-8.9); NEUTROPHILS % (AUTO) 80.7 % (43.0-81.0); PLATELET COUNT (AUTO) 313 /CMM (150-450); WHITE BLOOD COUNT (AUTO) 11.8 K/uL (4.3-11.0)
[2016-11-25] MEDS: IV NS 0.9% 1,000 ML IV PRN (04:53)
[2016-11-25] MEDS: MEROPENEM 500 MG in IV NS 0.9% 50 ML IV SCH ×2 (05:01→18:11)
[2016-11-25] MEDS: VANCOMYCIN 0.75 GM in IV D5W 250 ML IV SCH ×2 (05:08→17:06)
--- NOTE | 2016-11-25 05:08 | NUR ---
ICU/RN- VANCO TROUGH 22. HELD VANCO DOSE
--- NOTE | 2016-11-25 07:05 | NUR ---
WEB OPERATIONS ADMINISTRATOR- INITIAL NOTE RECEIVED PT A/O X1. ON 2L NC, RESPIRATIONS EVEN AND UNLABORED, NO SOB OR DISTRESS PRESENT, SATURATING AT 97%. BEDSIDE MONITOR REVEALS SINUS NADIR, HR= 55. URBAN CATHETER DRAINING TO GRAVITY CLEAR, YELLOW URINE. IVS PRESENT FOLLOWS: 1) JOSELYN PICC LINE (RUNNING NEOSYNEPHRINE @ 20 MCG/MIN AND NS @ 125 MLS/HR), 2) LFA 20G HL, 3) RFA 20G HL AND 4) LAC 18G HL. ALL IVS FLUSHED, PATENT, INTACT AND FREE OF REDNESS, SWELLING AND INFLAMMATION. SAFETY MEASURES TAKEN: BED LOCKED AND IN LOW POSITION, SIDE RAILS UP X2, BED ALARM ON AND CALL LIGHT WITHIN REACH, WILL CONTINUE TO MONITOR.
[2016-11-25] MEDS ORDERED: FIBERSOURCE HN 1,000 ML BOTTLE GT PRN (07:30)
[2016-11-25] MEDS ORDERED: ENOXAPARIN SODIUM 40 MG/0.4 ML DISP.SYRIN SQ SCH (08:00)
[2016-11-25] MEDS: BOOST PLUS FOOD-CHOCLATE 237 ML BOX PO SCH ×2 (08:00→16:44)
[2016-11-25] MEDS: AMIODARONE HCL 200 MG TABLET PO SCH ×2 (08:10→16:43)
[2016-11-25] MEDS ORDERED: IV NS 0.9% 250 ML IV ONE (08:17)
[2016-11-25] MEDS: Magnesium 1GM/D5W 100ML PREMIX 100 ML IV SCH ×4 (08:38→09:49)
[2016-11-25] MEDS: HYDROCORTISONE SOD SUCCINATE 100 MG/2 ML VIAL IV SCH ×3 (08:40→17:06)
[2016-11-25] MEDS: PROSOURCE / PROSTAT (PYXIS) 30 ML UDC GT SCH (08:42)
[2016-11-25] MEDS: MULTIVIT, IRON, MIN NO. 8, FA 1 TAB TABLET PO SCH (08:42)
[2016-11-25] MEDS: POTASSIUM CHLORIDE 20 MEQ TAB.PRT.SR PO SCH ×3 (08:42→10:41)
[2016-11-25] MEDS: LACTOBACILLUS RHAMNOSUS GG 1 EACH CAP.SPRINK GT SCH ×2 (08:42→17:06)
[2016-11-25] MEDS: LEVOTHYROXINE SODIUM 25 MCG TABLET PO SCH (08:43)
[2016-11-25] MEDS: FAMOTIDINE (20 MG) 20 MG TABLET PO SCH (08:43)
[2016-11-25] MEDS: ASPIRIN EC 81 MG TABLET.DR PO SCH (08:43)
[2016-11-25] MEDS: DAKINS QUARTER STRENGTH (0.125%) 480 ML BOTTLE TOP SCH (08:43)
[2016-11-25] MEDS: CHOLECALCIFEROL 1,000 UNIT TABLET (VIT D3) PO SCH (08:43)
[2016-11-25] MEDS: HYDROGEL DRESSING 90 GM TUBE TP SCH (08:44)
--- NOTE | 2016-11-25 08:50 | NUR ---
EMBROIDERY OPERATOR- DR. LOPES AT BEDSIDE. INFORMED MD PT WITH POOR APPETITE. OBTAINED VERBAL ORDER FOR NGT INSERTION AND TO START PT ON NGT FEEDING (MD WILL PLACE FNS CONSULT) 0930- NGT INSERTED. PT TOLERATED PROCEDURE WELL. PLACEMENT CONFIRMED VIA AUSCULTATION. VERIFIED WITH ARPI RN. WILL CONTINUE TO MONITOR.
[2016-11-25] MEDS: ENOXAPARIN SODIUM 30 MG/0.3 ML DISP.SYRIN SQ SCH (09:50)
[2016-11-25] MEDS ORDERED: Sodium Phosphate 7.5 MMOL in IV D5W 100 ML IV ONE (10:00)
[2016-11-25] MEDS ORDERED: IV SET PRIMARY PUMP SET 1 EA INFUS.SET MC ONE (10:44)
--- NOTE | 2016-11-25 15:20 | NUR ---
HIGHWAY MAINTENANCE TECHNICIAN- INFORMED DR. LOPES BINMAN HAS NOT SEEN PT. ATTEMPTED TO CONTACT BINMAN AND LEFT MESSAGE WELL. NO CALL BACK. PER MD, OK START PT ON FIBERSOUCE @ 30 MLS/HR AND FNS WILL F/U WITH PT TOMORROW WITH CHANGES IF NECESSARY. ORDERS PLACED AND CARRIED OUT. WILL CONTINUE TO MONITOR.
--- NOTE | 2016-11-25 17:00 | NUR ---
SUPERVISOR BLAST FURNACE AUXILIARIES- BOOST FEEDINGS NON-ADMINISTERED DUE TO PT RECEIVING NGT FEEDINGS. FNS CONSULT PENDING. WILL CONTINUE TO MONITOR.
[2016-11-25] MEDS: PHENYLEPHRINE 40 MG in IV D5W 250 ML IV PRN (17:07)
[2016-11-25] MEDS: IV NS 0.9% 250 ML IV PRN (17:08)
--- NOTE | 2016-11-25 20:00 | NUR ---
ICU/RN- PT IN BED ALERT TO NAME, CONFUSED. ABLE TO FOLLOW SIMPLE COMMANDS. ON MONITOR W/ HR 100'S, RHYTHM IS INACCURATE DUE TO PT'S CONSTANT HAND SHAKING AND RESTLESSNESS. WILL FIX LEADS. ON O2 2L/MIN VIA NC W/ O2 SAT 99%. RESP EVEN AND UNLABORED. PT ON SUN 15MCG/MIN. TOLERATING WELL. WILL TITRATE PER PROTOCOL. URBAN IN PLACE W/ CLEAR AND YELLOW URINE DRAINING WELL TO GRAVITY. LNGT IN PLACE. AUSCULTATED FOR + PLACEMENT. NO RESIDUAL NOTED. REPOSITIONED FOR COMFORT. BED LOW AND IN LOCKED POSITION. WILL MONITOR PT ACCORDINGLY.
[2016-11-26] VITALS (65 sets, daily range): BP systolic 81–149; BP diastolic 35–65
[2016-11-26] MEDS: PANTOPRAZOLE 40 MG VIAL IV SCH ×2 (01:19→23:20)
[2016-11-26 04:45] LABS: HEMATOCRIT 32 % (33-45); HEMOGLOBIN 10.3 g/dL (11.5-14.8); LYMPHOCYTES # (AUTO) 0.9 /CMM (0.8-4.8); LYMPHOCYTES % (AUTO) 7.5 % (20.0-44.0); MEAN CORPUSCULAR HEMOGLOBIN 30 PG (26.0-33.0); MEAN CORPUSCULAR HGB CONC 33 g/dl (31.0-36.0); MEAN CORPUSCULAR VOLUME 91 fL (82-100); MONOCYTES # (AUTO) 0.3 /CMM (0.1-1.30); MONOCYTES % (AUTO) 2.4 % (2.0-12.0); NEUTROPHILS # (AUTO) 10.5 /CMM (1.8-8.9); NEUTROPHILS % (AUTO) 90.1 % (43.0-81.0); PLATELET COUNT (AUTO) 413 /CMM (150-450); RED BLOOD CELL COUNT(AUTO) 3.47 MIL/uL (4.0-5.2); WHITE BLOOD COUNT (AUTO) 11.6 K/uL (4.3-11.0)
[2016-11-26 04:58] LABS: CALCIUM, SERUM 7.8 mg/dL (8.5-10.1); CREATININE 0.5 mg/dL (0.6-1.3); MAGNESIUM 2.2 mg/dL (1.8-2.4); PHOSPHORUS 2.3 mg/dL (2.5-4.9); POTASSIUM 3.8 mmol/L (3.5-5.1)
[2016-11-26] MEDS ORDERED: SECONDARY IV SET 1 EA INFUS.SET MC ONE ×2 (05:24→19:10)
[2016-11-26] MEDS: MEROPENEM 500 MG in IV NS 0.9% 50 ML IV SCH ×2 (05:26→17:58)
--- NOTE | 2016-11-26 06:39 | NUR ---
ICU/RN- ALL NEEDS ATTENDED AND MET. NAD NOTED. WILL ENDORSE TO AM SHIFT FOR CONTINUATION OF CARE.
--- NOTE | 2016-11-26 07:30 | NUR ---
ICU/RN: PT RECEIVED IN BED, ALERT TO SELF, REFUSES TO FOLLOW COMMANDS, HOWEVER ABLE TO COMMUNICATE NEEDS. FLAT AFFECT NOTED. BREATHING EVEN AND UNLABORED ON O2 2L/MIN VIA NC. JOSELYN PICC PATENT AND INTACT, NO S/S BLEEDING OR INFECTION NOTED. FC DRAINING TO GRAVITY. NGT AUSCULTATED, + PLACEMENT, NO TF RESIDUALS NOTED. WILL CONT TO MONITOR PT.
[2016-11-26] MEDS: BOOST PLUS FOOD-CHOCLATE 237 ML BOX PO SCH (08:00)
[2016-11-26] MEDS: LEVOTHYROXINE SODIUM 25 MCG TABLET PO SCH (08:32)
[2016-11-26] MEDS: MULTIVIT, IRON, MIN NO. 8, FA 1 TAB TABLET PO SCH (08:32)
[2016-11-26] MEDS: PROSOURCE / PROSTAT (PYXIS) 30 ML UDC GT SCH (08:32)
[2016-11-26] MEDS: FAMOTIDINE (20 MG) 20 MG TABLET PO SCH (08:32)
[2016-11-26] MEDS: LACTOBACILLUS RHAMNOSUS GG 1 EACH CAP.SPRINK GT SCH ×2 (08:32→16:37)
[2016-11-26] MEDS: ASPIRIN EC 81 MG TABLET.DR PO SCH (08:32)
[2016-11-26] MEDS: CHOLECALCIFEROL 1,000 UNIT TABLET (VIT D3) PO SCH (08:32)
[2016-11-26] MEDS: HYDROCORTISONE SOD SUCCINATE 100 MG/2 ML VIAL IV SCH ×3 (08:32→16:37)
[2016-11-26] MEDS: HYDROGEL DRESSING 90 GM TUBE TP SCH (08:33)
[2016-11-26] MEDS: AMIODARONE HCL 200 MG TABLET PO SCH ×2 (08:33→16:37)
[2016-11-26] MEDS: ENOXAPARIN SODIUM 30 MG/0.3 ML DISP.SYRIN SQ SCH (08:34)
[2016-11-26] MEDS: DAKINS QUARTER STRENGTH (0.125%) 480 ML BOTTLE TOP SCH (08:37)
--- NOTE | 2016-11-26 09:00 | NUR ---
ICU/RN: BOOST DOSE HELD; AWAITING DIETARY CONSULT. MD AWARE.
--- NOTE | 2016-11-26 09:30 | NUR ---
ICU/RN: DR LOPES AT BEDSIDE; DISCUSSED PT LABS, URINE OUTPUT <30CC/HR. REMAINS ON PRESSORS. MD TO ORDER FREE WATER FLUSHES; PER MD "CONTINUE TUBE FEEDING FOR NOW PER CERTIFIED TRAVEL COUNSELOR'S RECOMMENDATIONS. WE'LL DO A F/U SWALLOW EVAL LATER." WILL F/U WITH DIETARY CONSULT.
[2016-11-26] MEDS ORDERED: NEUTRA PHOS 1 POWD.PACKET NG ONE (14:00)
--- NOTE | 2016-11-26 14:00 | NUR ---
ICU/RN: COMPLETE BED BATH AND WOUND CARE RENDERED. PT TOLERATED WELL. TOLERATING CURRENT FEEDING RATE PER COIL FINISHER RECOMMENDATIONS. MIN URINE OUTPUT NOTED. WILL CONT TO MONITOR PT.
[2016-11-26] MEDS: PHENYLEPHRINE 40 MG in IV D5W 250 ML IV PRN (16:38)
[2016-11-26] MEDS: VANCOMYCIN 0.75 GM in IV D5W 250 ML IV SCH (16:38)
[2016-11-26] MEDS: IV NS 0.9% 250 ML IV PRN (16:58)
[2016-11-26] MEDS: FIBERSOURCE HN 1,000 ML BOTTLE GT PRN (16:59)
[2016-11-26] MEDS ORDERED: FLUCONAZOLE (100 MG) 100 MG TABLET PO SCH (18:00)
--- NOTE | 2016-11-26 19:09 | NUR ---
ICU/RN: PT RESTING COMFORTABLY IN BED, NO S/S ACUTE DISTRESS, BREATHING EVEN AND UNLABORED, TOLERATING GTF. TELE READING NSR IN 60'S. CARE ENDORSED TO PM RN FOR CANDELARIA.
[2016-11-26] MEDS: MICAFUNGIN SODIUM 100 MG in IV NS 0.9% 100 ML IV SCH (19:25)
--- NOTE | 2016-11-26 20:00 | NUR ---
ICU/RN- PT IN BED ALERT TO NAME, CONFUSED. ABLE TO FOLLOW SIMPLE COMMANDS. ON MONITOR W/ HR 77. ON O2 2L/MIN VIA NC W/ O2 SAT 99%. RESP EVEN AND UNLABORED. PT ON SUN 20MCG/MIN. TOLERATING WELL. WILL TITRATE PER PROTOCOL. URBAN IN PLACE W/ CLEAR AND YELLOW URINE DRAINING WELL TO GRAVITY. L NGT IN PLACE. AUSCULTATED FOR + PLACEMENT. NO RESIDUAL NOTED. REPOSITIONED FOR COMFORT. BED LOW AND IN LOCKED POSITION. WILL MONITOR PT ACCORDINGLY.
[2016-11-27] VITALS (55 sets, daily range): BP systolic 90–153; BP diastolic 37–78
[2016-11-27 04:37] LABS: BASOPHILS % (AUTO) 0.1 % (0.0-2.0); HEMATOCRIT 31 % (33-45); HEMOGLOBIN 9.9 g/dL (11.5-14.8); LYMPHOCYTES # (AUTO) 1.3 /CMM (0.8-4.8); LYMPHOCYTES % (AUTO) 8.2 % (20.0-44.0); MEAN CORPUSCULAR HEMOGLOBIN 30 PG (26.0-33.0); MEAN CORPUSCULAR HGB CONC 32 g/dl (31.0-36.0); MEAN CORPUSCULAR VOLUME 92 fL (82-100); MONOCYTES # (AUTO) 0.3 /CMM (0.1-1.30); MONOCYTES % (AUTO) 2.1 % (2.0-12.0); NEUTROPHILS # (AUTO) 14.6 /CMM (1.8-8.9); NEUTROPHILS % (AUTO) 89.6 % (43.0-81.0); PLATELET COUNT (AUTO) 438 /CMM (150-450); RDW COEFFICIENT OF VARIATION 15.3 (11.5-15.0); RED BLOOD CELL COUNT(AUTO) 3.33 MIL/uL (4.0-5.2); WHITE BLOOD COUNT (AUTO) 16.3 K/uL (4.3-11.0)
[2016-11-27 04:53] LABS: CALCIUM, SERUM 7.8 mg/dL (8.5-10.1); CREATININE 0.5 mg/dL (0.6-1.3); MAGNESIUM 2.1 mg/dL (1.8-2.4); PHOSPHORUS 1.6 mg/dL (2.5-4.9); POTASSIUM 3.8 mmol/L (3.5-5.1)
[2016-11-27] MEDS: MEROPENEM 500 MG in IV NS 0.9% 50 ML IV SCH ×2 (05:33→17:44)
--- NOTE | 2016-11-27 06:24 | NUR ---
ICU/RN- ALL NEEDS ATTENDED AND MET. AM CARE PROVIDED. NO ACUTE DISTRESS OBSERVED. WILL ENDORSE TO AM SHIFT FOR CONTINUATION OF CARE.
--- NOTE | 2016-11-27 07:10 | NUR ---
PATIENT CARE DIRECTOR- INITIAL NOTE RECEIVED PT A/O X1. ON 2L NC, RESPIRATIONS EVEN AND UNLABORED, NO SOB OR DISTRESS PRESENT, SATURATING AT 97%. BEDSIDE MONITOR REVEALS SINUS RHYTHM, HR= 65. URBAN CATHETER DRAINING TO GRAVITY CLEAR, YELLOW URINE. NGT PRESENT IN LEFT NARE RUNNING FIBERSOURCE @ 50 MLS/HR. IVS PRESENT FOLLOWS: 1) JOSELYN PICC LINE (RUNNING NS @ TKO), 2) LFA 20G HL, 3) RFA 20G HL AND 4) LAC 18G HL. ALL IVS FLUSHED, PATENT, INTACT AND FREE OF REDNESS, SWELLING AND INFLAMMATION. SAFETY MEASURES TAKEN: BED LOCKED AND IN LOW POSITION, SIDE RAILS UP X2, BED ALARM ON AND CALL LIGHT WITHIN REACH, WILL CONTINUE TO MONITOR.
[2016-11-27] MEDS ORDERED: SECONDARY IV SET 1 EA INFUS.SET MC ONE (08:41)
[2016-11-27] MEDS: Magnesium 1GM/D5W 100ML PREMIX 100 ML IV SCH ×2 (08:42→09:48)
[2016-11-27] MEDS: ASPIRIN EC 81 MG TABLET.DR PO SCH (08:47)
[2016-11-27] MEDS: LEVOTHYROXINE SODIUM 25 MCG TABLET PO SCH (08:47)
[2016-11-27] MEDS: LACTOBACILLUS RHAMNOSUS GG 1 EACH CAP.SPRINK GT SCH ×2 (08:47→16:00)
[2016-11-27] MEDS: PROSOURCE / PROSTAT (PYXIS) 30 ML UDC GT SCH (08:47)
[2016-11-27] MEDS: FAMOTIDINE (20 MG) 20 MG TABLET PO SCH (08:47)
[2016-11-27] MEDS: HYDROCORTISONE SOD SUCCINATE 100 MG/2 ML VIAL IV SCH ×3 (08:47→16:00)
[2016-11-27] MEDS: CHOLECALCIFEROL 1,000 UNIT TABLET (VIT D3) PO SCH (08:48)
[2016-11-27] MEDS: DAKINS QUARTER STRENGTH (0.125%) 480 ML BOTTLE TOP SCH (08:48)
[2016-11-27] MEDS: AMIODARONE HCL 200 MG TABLET PO SCH ×2 (08:48→16:01)
[2016-11-27] MEDS: MULTIVIT, IRON, MIN NO. 8, FA 1 TAB TABLET PO SCH (08:48)
[2016-11-27] MEDS: HYDROGEL DRESSING 90 GM TUBE TP SCH (08:49)
[2016-11-27] MEDS: ENOXAPARIN SODIUM 30 MG/0.3 ML DISP.SYRIN SQ SCH (08:50)
[2016-11-27] MEDS: FIBERSOURCE HN 1,000 ML BOTTLE GT PRN ×2 (16:00→23:32)
[2016-11-27] MEDS: IV NS 0.9% 250 ML IV PRN ×2 (16:00→23:31)
[2016-11-27] MEDS ORDERED: NEUTRA PHOS 1 POWD.PACKET NG ONE (18:00)
[2016-11-27] MEDS: MICAFUNGIN SODIUM 100 MG in IV NS 0.9% 100 ML IV SCH (19:44)
[2016-11-27] MEDS: LINEZOLID 600 MG TABLET PO SCH (19:45)
--- NOTE | 2016-11-27 20:52 | NUR ---
COMMODITY INDUSTRY ANALYST: RECEIVED PT A/O X1. ON 2L NC, RESPIRATIONS EVEN AND UNLABORED, NO SOB OR DISTRESS PRESENT, SATURATING AT 97%. BEDSIDE MONITOR REVEALS SINUS RHYTHM, HR 65-70. URBAN CATHETER DRAINING TO GRAVITY CLEAR, YELLOW URINE. NGT PRESENT IN LEFT NOSTRIL RUNNING FIBERSOURCE @ 50 MLS/HR. IVS PRESENT , JOSELYN PICC LINE RUNNING TKO, LFA 20G HL, RFA 20G HL AND. ALL IVS FLUSHED, PATENT, INTACT AND FREE OF REDNESS, SWELLING AND INFLAMMATION. SAFETY MEASURES TAKEN: BED LOCKED AND IN LOW POSITION, SIDE RAILS UP X2, BED ALARM ON AND CALL LIGHT WITHIN REACH, KEEP MONITORING.
--- NOTE | 2016-11-27 21:48 | NUR ---
TEST AND TURN UP TECHNICIAN; PT WILL BE TRANSFERRED TO [facility] ROOM # 105, REPORT GIVEN TO VINICIO/RN,.WILL BE TRANSFER WITH ACLS PROTOCOL.
--- NOTE | 2016-11-27 22:20 | NUR ---
RN NOTES RECEIVED PX FROM ICU VIA PX BED; HOOKED TO TELE MONITOR; PX AWAKE, ALERT, NON VERBAL, NOT FOLLOWING COMMAND BUT WITH EYE REGARD; ON NC AT 2 LPM; NO S/SX DISTRESS, RESP EVEN AND UNLABORED; WITH PICC ON RT UA FLUSHED PATENT INTACT; WITH URBAN CATH TAPED TO THIGH TO BAG BY GRAVITY; WITH NGT TO TF, TF TOLERATED WELL; BILAT DVT PUMPS ON, HEELS OFFLOADED; WITH DIAPER ON, DRESSING ON SACRAL AREA, DRESSSING CLEAN DRY INTACT; SEE SKIN FLOWHSEET FOR SKIN ASSESSMENT; ORIENTED PX TO THE UNIT, DISCUSSED PLAN OF CARE; RESPOSITIONED WITH HOB AT 30 ANGLE.
[2016-11-27] MEDS: PANTOPRAZOLE 40 MG VIAL IV SCH (23:31)
[2016-11-28] VITALS (14 sets, daily range): BP systolic 91–112; BP diastolic 39–68
[2016-11-28] MEDS: MEROPENEM 500 MG in IV NS 0.9% 50 ML IV SCH ×2 (05:23→17:07)
--- NOTE | 2016-11-28 06:30 | NUR ---
RN NOTES NO EVENT OVERNIGHT; CONDITION AND NEURO STATUS UNCHANGED; NOT IN DISTRESS, RESP EVEN AND UNLABORED; SR ON MONITOR; HAD 1 BM LOOSE BROWN, CLEANED AND CHANGED GOWN AND BED LINENS, CHANGED DRESSING ON SACRAL AREA PER PROTOCOL/MD ORDER, NO NEW SKIN BREAKDOWN NOTED; DUE MEDS GIVEN; REPOSITIONED PX IN BED; SR ON MONITOR; TF TOLERATED; IV ACCESS FLUSHED PATENT AND INTACT; WILL ENDORSE TO NEXT RN.
[2016-11-28 06:58] LABS: BILIRUBIN,TOTAL 0.2 mg/dL (0.2-1.0); CALCIUM, SERUM 7.8 mg/dL (8.5-10.1); CREATININE 0.6 mg/dL (0.6-1.3); MAGNESIUM 2.5 mg/dL (1.8-2.4); PHOSPHORUS 1.8 mg/dL (2.5-4.9); POTASSIUM 4.4 mmol/L (3.5-5.1); TOTAL PROTEIN, SERUM 4.3 g/dL (6.4-8.2)
--- NOTE | 2016-11-28 07:10 | NUR ---
RN NOTES: PT RECEIVED IN STABLE CONDITION AWAKE, RESPONSIVE TO VERBAL & TACTILE STIMULI. ON O2 VIA NC 2LPM. ON TELE MONITOR SINUS RHYTHM. NGT INTACT, RUNNING WITH TUBE FEEDING ORDERED BY . NO RESIDUAL NOTED. F/C INTACT, DRAINING WITH GRAVITY WITH YELLOW CLEAR URINE. RIGHT UPPER ARM PICC LINE INTACT, FLUSHED WITH NS. TKO IS RUNNING ORDERED. SAFETY MEASURES OBSERVED. CALL LIGHT WITHIN REACH. WILL CONTINUE TO MONITOR.
[2016-11-28 07:18] LABS: BASOPHILS % (AUTO) 0.1 % (0.0-2.0); LYMPHOCYTES # (AUTO) 1.6 /CMM (0.8-4.8); LYMPHOCYTES % (AUTO) 7.3 % (20.0-44.0); MEAN CORPUSCULAR HEMOGLOBIN 30 PG (26.0-33.0); MEAN CORPUSCULAR HGB CONC 33 g/dl (31.0-36.0); MEAN CORPUSCULAR VOLUME 92 fL (82-100); MONOCYTES # (AUTO) 0.6 /CMM (0.1-1.30); MONOCYTES % (AUTO) 2.9 % (2.0-12.0); NEUTROPHILS # (AUTO) 19.1 /CMM (1.8-8.9); NEUTROPHILS % (AUTO) 89.7 % (43.0-81.0); PLATELET COUNT (AUTO) 290 /CMM (150-450)
[2016-11-28 07:22] LABS: RED BLOOD CELL COUNT(AUTO) 1.96 MIL/uL (4.0-5.2)
[2016-11-28 07:23] LABS: WHITE BLOOD COUNT (AUTO) 21.2 K/uL (4.3-11.0)
[2016-11-28 07:31] LABS: HEMATOCRIT 18 % (33-45); HEMOGLOBIN 5.8 g/dL (11.5-14.8)
[2016-11-28 07:50] LABS: BAND % (MANUAL) 2 % (0.0-5.0); LYMPHOCYTES % (MANUAL) 7 % (16-48); MONOCYTES % (MANUAL) 4 % (0-11.0); MYELOCYTES % 1 % (0-0); NEUTROPHILS % (MANUAL) 86 (42-76)
[2016-11-28 08:10] LABS: HEMOGLOBIN 5.6 g/dL (11.5-14.8)
[2016-11-28] MEDS: ASPIRIN EC 81 MG TABLET.DR PO SCH (09:00)
[2016-11-28] MEDS: ENOXAPARIN SODIUM 30 MG/0.3 ML DISP.SYRIN SQ SCH (09:00)
[2016-11-28] MEDS: LEVOTHYROXINE SODIUM 25 MCG TABLET PO SCH (09:05)
[2016-11-28] MEDS: LINEZOLID 600 MG TABLET PO SCH ×2 (09:05→21:41)
[2016-11-28] MEDS: MULTIVIT, IRON, MIN NO. 8, FA 1 TAB TABLET PO SCH (09:05)
[2016-11-28] MEDS: PROSOURCE / PROSTAT (PYXIS) 30 ML UDC GT SCH (09:05)
[2016-11-28] MEDS: FAMOTIDINE (20 MG) 20 MG TABLET PO SCH (09:05)
[2016-11-28] MEDS: CHOLECALCIFEROL 1,000 UNIT TABLET (VIT D3) PO SCH (09:05)
[2016-11-28] MEDS: HYDROCORTISONE SOD SUCCINATE 100 MG/2 ML VIAL IV SCH ×3 (09:05→17:05)
[2016-11-28] MEDS: LACTOBACILLUS RHAMNOSUS GG 1 EACH CAP.SPRINK GT SCH ×2 (09:05→17:06)
[2016-11-28] MEDS: DAKINS QUARTER STRENGTH (0.125%) 480 ML BOTTLE TOP SCH (09:08)
[2016-11-28] MEDS: HYDROGEL DRESSING 90 GM TUBE TP SCH (09:09)
[2016-11-28] MEDS: AMIODARONE HCL 200 MG TABLET PO SCH ×2 (09:11→17:06)
[2016-11-28 09:35] LABS: MEAN CORPUSCULAR HEMOGLOBIN 30 PG (26.0-33.0); MEAN CORPUSCULAR HGB CONC 33 g/dl (31.0-36.0); MEAN CORPUSCULAR VOLUME 93 fL (82-100); PLATELET COUNT (AUTO) 302 /CMM (150-450); WHITE BLOOD COUNT (AUTO) 22.4 K/uL (4.3-11.0)
[2016-11-28 09:40] LABS: RED BLOOD CELL COUNT(AUTO) 1.94 MIL/uL (4.0-5.2)
[2016-11-28 09:41] LABS: HEMOGLOBIN 5.9 g/dL (11.5-14.8)
[2016-11-28 09:42] LABS: HEMATOCRIT 18 % (33-45)
--- NOTE | 2016-11-28 10:00 | NUR ---
RN NOTES: RECEIVED CALL FROM LABS AT 0710, REGARDING H/H CRITICAL LOW=5.8/18, RECEIVED ORDER TO REDRAW FROM DR. BAKER. 2ND TIME H/H LEVEL 5.6/[address] BAKER AWARE, RECEIVED NEW ORDER TO DRAW 3RD TIME: H/H 5.9/. [facility]MA CHARGE NURSE CALL DR. TERRAZAS, RECEIVED NEW ORDERS TO TRANSFUSE 2PRBC. ORDERED TYPE & SCREEN. ORDERS NOTED & CARRIED OUT.
[2016-11-28] MEDS ORDERED: NEUTRA PHOS 1 POWD.PACKET PO ONE (12:00)
--- NOTE | 2016-11-28 13:00 | NUR ---
SEEN BY ASSOCIATE SOFTWARE DEVELOPMENT ENGINEER DR. YUSUF AWARE OF DROP ON H/H,WITH NEW ORDERS FOR LABS.AWAITS BLOOD TO BE READY,WILL CONTINUE TO MONITOR FOR ACTIVE BLEEDING.
[2016-11-28 13:03] LABS: RETICULOCYTE COUNT 3.2 % (0.6-2.5)
[2016-11-28 13:14] LABS: THYROID STIMULATING HORMONE 2.89 uIU/mL (0.358-3.74); URIC ACID 3.3 mg/dL (2.6-7.2)
[2016-11-28] MEDS ORDERED: BLOOD IV SET 1 EA INFUS.SET MC ONE ×2 (13:18→22:03)
--- NOTE | 2016-11-28 14:06 | NUR ---
RN NOTES: NOTED PATIENT NEEDS ANTIBODY CHECK. ORDERED & CAARIED OUT, WAITING FOR RESULTS.
[2016-11-28 15:39] LABS: APPEARANCE,URINE CLEAR (CLEAR); BILIRUBIN,URINE NEGATIVE (NEGATIVE); BLOOD, URINE TRACE-INTA Ery/uL (NEGATIVE); COLOR,URINE YELLOW (YELLOW); KETONES,URINE NEGATIVE (NEGATIVE); LEUKOCYTE ESTERASE ,URINE NEGATIVE (NEGATIVE); NITRITE, URINE NEGATIVE (NEGATIVE); PH,URINE 6.5 (5.0-8.0); PROTEIN,URINE NEGATIVE (NEGATIVE); UGLUCOSE NEGATIVE (NEGATIVE); UROBILINOGEN,URINE 0.2 EU/dL (0.2)
[2016-11-28 16:33] LABS: BACTERIA,URINE 1+ /HPF (None Seen); CALCIUM OXALATE CRYSTALS,UR Few /HPF (None Seen); SQUAMOUS EPITHELIAL CELL,UR 0-2 /HPF (None Seen)
--- NOTE | 2016-11-28 17:25 | NUR ---
FF. UP W/ BLOOD BANK ,BLOOD WILL BE READY TONIGHT,DR. BAKER UPDATED ABOUT PT. REPEATED LOW H/H AND PRIMARY MD DIDNOT ORDER ANY WORK UP AND WAITING FOR BLOOD TO BE READY ,NO NEW ORDERS.
--- NOTE | 2016-11-28 19:20 | NUR ---
RN INITIAL NOTE RECIEVED PT IN NO ACUTE DISTRESS IN BED. PT IS AWAKE WITH EYES OPEN, BUT IS NON VERBAL. PT IS ON O2 VIA NC @ 2LPM AND TOLERATING WELL. PT IS ON TELE WITH SR ON THE MONITOR. PT HAS NGTUBE IN LEFT NARE THAT IS CLEAN DRY INTACT AND PATENT WITH FIBERSOURCE @ 50ML/HR. PT TOLERATING FEEDING WITH 0 RESIDUAL. PT HAS F/C THAT IS CLEAN DRY INTACT AND PATENT WITH CLEAR YELLOW URINE DRAINING. PT HAS LFA 20G THAT IS CLEAN DRY INTACT AND PATENT WITH SALINE LOCK. RFA 20G THAT IS CLEAN DRY INTACT AND PATENT WITH SALINE LOCK. PT HAS JOSELYN PICC LINE THAT IS CLEAN DRY INTACT WITH NS @ TKO. BED IN LOW LOCK POSITION WIT RIALS UP X 2. CALL LIGHT WITHIN REACH AND ALL SAFETY MEASURES ENSURED AND CARRIED OUT. WILL CONTINUE TO MONITOR PT.
[2016-11-28] MEDS: MICAFUNGIN SODIUM 100 MG in IV NS 0.9% 100 ML IV SCH (20:42)
[2016-11-28] MEDS ORDERED: IV NS 0.9% 500 ML IV ONE (22:03)
--- NOTE | 2016-11-28 22:15 | NUR ---
RN NOTE STARTED BLOOD WILL CONTINUE TO MONITOR FOR ANY S/S OF BLOOD REACTION.
[2016-11-28] MEDS: PANTOPRAZOLE 40 MG VIAL IV SCH (23:30)
[2016-11-29] VITALS (16 sets, daily range): BP systolic 112–132; BP diastolic 48–69
[2016-11-29] MEDS: MEROPENEM 500 MG in IV NS 0.9% 50 ML IV SCH ×2 (05:16→17:04)
[2016-11-29 06:34] LABS: HEMATOCRIT 28 % (33-45); HEMOGLOBIN 9.5 g/dL (11.5-14.8); LYMPHOCYTES # (AUTO) 1.4 /CMM (0.8-4.8); LYMPHOCYTES % (AUTO) 6.3 % (20.0-44.0); MEAN CORPUSCULAR HEMOGLOBIN 30 PG (26.0-33.0); MEAN CORPUSCULAR HGB CONC 34 g/dl (31.0-36.0); MEAN CORPUSCULAR VOLUME 88 fL (82-100); MONOCYTES # (AUTO) 0.4 /CMM (0.1-1.30); MONOCYTES % (AUTO) 1.8 % (2.0-12.0); NEUTROPHILS # (AUTO) 20.6 /CMM (1.8-8.9); NEUTROPHILS % (AUTO) 91.9 % (43.0-81.0); PLATELET COUNT (AUTO) 270 /CMM (150-450); RDW COEFFICIENT OF VARIATION 15.3 (11.5-15.0); RED BLOOD CELL COUNT(AUTO) 3.19 MIL/uL (4.0-5.2); WHITE BLOOD COUNT (AUTO) 22.5 K/uL (4.3-11.0)
--- NOTE | 2016-11-29 06:37 | NUR ---
RN NOTE PT REMAINS IN NO ACUTE DISTRESS IN BED. PT DID NOT HAVE ANY SIGNIFICANT CHANGE IN CONDITION DURING SHIFT. PT TOLERATED NGTUBE FEEDING WELL WITH 0 RESIDUAL. WILL ENDORSE TO AM RN FOR CONTINUITY OF CARE.
[2016-11-29 06:55] LABS: CALCIUM, SERUM 8.1 mg/dL (8.5-10.1); CREATININE 0.6 mg/dL (0.6-1.3); POTASSIUM 4.3 mmol/L (3.5-5.1)
[2016-11-29 07:03] LABS: BAND % (MANUAL) 4 % (0.0-5.0); LYMPHOCYTES % (MANUAL) 6 % (16-48); MONOCYTES % (MANUAL) 5 % (0-11.0); NEUTROPHILS % (MANUAL) 85 (42-76)
[2016-11-29] MEDS: LINEZOLID 600 MG TABLET PO SCH ×2 (08:18→20:32)
[2016-11-29] MEDS: CHOLECALCIFEROL 1,000 UNIT TABLET (VIT D3) PO SCH (08:19)
[2016-11-29] MEDS: PROSOURCE / PROSTAT (PYXIS) 30 ML UDC GT SCH (08:19)
[2016-11-29] MEDS: ASPIRIN EC 81 MG TABLET.DR PO SCH (08:19)
[2016-11-29] MEDS: AMIODARONE HCL 200 MG TABLET PO SCH ×2 (08:19→16:17)
[2016-11-29] MEDS: MULTIVIT, IRON, MIN NO. 8, FA 1 TAB TABLET PO SCH (08:19)
[2016-11-29] MEDS: LEVOTHYROXINE SODIUM 25 MCG TABLET PO SCH (08:19)
[2016-11-29] MEDS: LACTOBACILLUS RHAMNOSUS GG 1 EACH CAP.SPRINK GT SCH ×2 (08:19→16:17)
[2016-11-29] MEDS: FAMOTIDINE (20 MG) 20 MG TABLET PO SCH (08:19)
[2016-11-29] MEDS: HYDROCORTISONE SOD SUCCINATE 100 MG/2 ML VIAL IV SCH ×3 (08:19→16:20)
[2016-11-29] MEDS: HYDROGEL DRESSING 90 GM TUBE TP SCH (08:20)
[2016-11-29] MEDS: DAKINS QUARTER STRENGTH (0.125%) 480 ML BOTTLE TOP SCH (08:20)
[2016-11-29] MEDS: ENOXAPARIN SODIUM 30 MG/0.3 ML DISP.SYRIN SQ SCH (08:21)
--- NOTE | 2016-11-29 19:30 | NUR ---
RN INITIAL NOTES RECEIVED PATIENT IN BED, AWAKE, EYES OPEN, TRACKS WITH EYES, NONVERBAL. BREATHING IS EVEN AND NONLABORED WHILE ON O2 VIA NC @ 2LPM, TOLERATING WELL, FREE FROM ANY S/S OF RESPIRATORY DISTRESS. ON TELEMETRY MONITORING, REVEALING SINUS RHYTHM, HR 84 AT THIS TIME. NOTED WITH NGT TO LEFT NARE, PATENT AND INTACT, WITH TUBE FEEDINGS ONGOING PRESCRIBED, NO GASTRIC RESIDUALS NOTED AT THIS TIME. URBAN CATHETER NOTED WITH YELLOW URINE OUTPUT TO GRAVITY. CALL LIGHT LEFT WITHIN EASY REACH, BED IN LOWEST AND LOCKED POSITION, HOB KEPT ELEVATED FOR ASPIRATION PRECAUTIONS. ISOLATION PRECAUTIONS OBSERVED. WILL CONTINUE TO CLOSELY MONITOR
[2016-11-29] MEDS: MICAFUNGIN SODIUM 100 MG in IV NS 0.9% 100 ML IV SCH (20:32)
[2016-11-29] MEDS: PANTOPRAZOLE 40 MG VIAL IV SCH (23:37)
[2016-11-30] VITALS (7 sets, daily range): BP systolic 128–148; BP diastolic 51–78
--- NOTE | 2016-11-30 01:00 | NUR ---
RN NOTES PATIENT ENDORSED TO NURSE TOLEDO FOR CONTINUITY OF CARE
[2016-11-30] MEDS: FIBERSOURCE HN 1,000 ML BOTTLE GT PRN (04:16)
[2016-11-30] MEDS: MEROPENEM 500 MG in IV NS 0.9% 50 ML IV SCH ×2 (05:27→18:23)
[2016-11-30] MEDS: LEVOTHYROXINE SODIUM 25 MCG TABLET PO SCH (06:06)
--- NOTE | 2016-11-30 06:39 | NUR ---
pt non verbal, awake. no significant changes overnight, vss, afebrile. continue with ngt feeding ,tolerating well, no residual. norman intact. will continue to monitor, kept clean and dry.
[2016-11-30 06:46] LABS: CALCIUM, SERUM 8.1 mg/dL (8.5-10.1); CREATININE 0.6 mg/dL (0.6-1.3); POTASSIUM 4.4 mmol/L (3.5-5.1)
[2016-11-30] MEDS: LACTOBACILLUS RHAMNOSUS GG 1 EACH CAP.SPRINK GT SCH ×2 (09:49→18:22)
[2016-11-30] MEDS: AMIODARONE HCL 200 MG TABLET PO SCH ×2 (09:50→18:23)
[2016-11-30] MEDS: CHOLECALCIFEROL 1,000 UNIT TABLET (VIT D3) PO SCH (09:50)
[2016-11-30] MEDS: PROSOURCE / PROSTAT (PYXIS) 30 ML UDC GT SCH (09:51)
[2016-11-30] MEDS: ASPIRIN EC 81 MG TABLET.DR PO SCH (09:51)
[2016-11-30] MEDS: FAMOTIDINE (20 MG) 20 MG TABLET PO SCH (09:51)
[2016-11-30] MEDS: MULTIVIT, IRON, MIN NO. 8, FA 1 TAB TABLET PO SCH (09:51)
[2016-11-30] MEDS: LINEZOLID 600 MG TABLET PO SCH ×2 (09:51→20:00)
[2016-11-30] MEDS: HYDROCORTISONE SOD SUCCINATE 100 MG/2 ML VIAL IV SCH ×3 (09:52→18:22)
[2016-11-30] MEDS: ENOXAPARIN SODIUM 30 MG/0.3 ML DISP.SYRIN SQ SCH (09:53)
[2016-11-30] MEDS: DAKINS QUARTER STRENGTH (0.125%) 480 ML BOTTLE TOP SCH (09:54)
[2016-11-30] MEDS: HYDROGEL DRESSING 90 GM TUBE TP SCH (09:54)
[2016-11-30] MEDS: ACETAMINOPHEN 325 MG TABLET PO PRN ×2 (10:15→18:36)
[2016-11-30 11:11] LABS: *SPE A/G RATIO 1.3 (0.7-1.7); *SPE ALBUMIN 2.2 g/dL (2.9-4.4); *SPE ALPHA-1-GLOBULIN 0.2 g/dL (0.0-0.4); *SPE ALPHA-2-GLOBULIN 0.6 g/dL (0.4-1.0); *SPE BETA GLOBULIN 0.4 g/dL (0.7-1.3); *SPE GLOBULIN, TOTAL 1.7 g/dL (2.2-3.9); *SPE M-SPIKE Not Observed g/dL (Not Observed); *SPE PROTEIN TOTAL 3.9 g/dL (6.0-8.5); *SPEGAMMA GLOBULIN 0.5 g/dL (0.4-1.8)
--- NOTE | 2016-11-30 19:30 | NUR ---
RN INITIAL NOTES RECEIVED PT AWAKE ON BED, A/O X1 ONLY, SELECTIVE ON HER VERBAL RESPONSES. ON 2L NASAL CANNULA, SATURATING WELL. SR ON THE MONITOR, HR 80'S. URBAN CATH NOTED. LEFT NARE NGT WITH FIBERSOURCE FEEDING @ 50MLS/HR, NO RESIDUALS. RIGHT UPPER ARM PICC FLUSHED AND PATENT, NO S/S OF INFILTRATION/INFECTION, DRESSING CDI. BED LOW AND LOCKED, SIDERAILS UP, CALL LIGHT WITHIN REACH. WILL MONITOR
[2016-11-30] MEDS: MICAFUNGIN SODIUM 100 MG in IV NS 0.9% 100 ML IV SCH (20:00)
[2016-11-30] MEDS ORDERED: SECONDARY IV SET 1 EA INFUS.SET MC ONE (20:02)
[2016-11-30] MEDS: PANTOPRAZOLE 40 MG VIAL IV SCH (23:59)
[2016-12-01] VITALS: BP 109/70
[2016-12-01 01:18] LABS: HAPTOGLOBIN 214 mg/dL (34-200)
[2016-12-01] MEDS: FIBERSOURCE HN 1,000 ML BOTTLE GT PRN ×2 (02:54→16:32)
[2016-12-01 03:14] LABS: CARCINOEMBRYONIC AG (CEA) 2.9 ng/mL (0.0-4.7)
[2016-12-01 04:00] VITALS: BP 138/62
[2016-12-01] MEDS: MEROPENEM 500 MG in IV NS 0.9% 50 ML IV SCH ×2 (05:17→17:42)
--- NOTE | 2016-12-01 06:30 | NUR ---
RN CLOSING NOTES PT REMAINS STABLE OF THE MOMENT. ALL DUE MEDS GIVEN. AM CARE PROVIDED. WILL ENDORSE CONTINUITY OF CARE TO AM RN
[2016-12-01 06:53] LABS: HEMATOCRIT 24 % (33-45); HEMOGLOBIN 8.1 g/dL (11.5-14.8); LYMPHOCYTES # (AUTO) 0.7 /CMM (0.8-4.8); LYMPHOCYTES % (AUTO) 2.7 % (20.0-44.0); MEAN CORPUSCULAR HEMOGLOBIN 30 PG (26.0-33.0); MEAN CORPUSCULAR HGB CONC 34 g/dl (31.0-36.0); MEAN CORPUSCULAR VOLUME 90 fL (82-100); MONOCYTES # (AUTO) 0.3 /CMM (0.1-1.30); MONOCYTES % (AUTO) 1.1 % (2.0-12.0); NEUTROPHILS # (AUTO) 26.4 /CMM (1.8-8.9); NEUTROPHILS % (AUTO) 96.2 % (43.0-81.0); PLATELET COUNT (AUTO) 283 /CMM (150-450); RDW COEFFICIENT OF VARIATION 15.1 (11.5-15.0); RED BLOOD CELL COUNT(AUTO) 2.68 MIL/uL (4.0-5.2); WHITE BLOOD COUNT (AUTO) 27.5 K/uL (4.3-11.0)
[2016-12-01 07:28] LABS: CALCIUM, SERUM 7.9 mg/dL (8.5-10.1); CREATININE 0.5 mg/dL (0.6-1.3); MAGNESIUM 2.1 mg/dL (1.8-2.4); PHOSPHORUS 1.6 mg/dL (2.5-4.9); POTASSIUM 3.7 mmol/L (3.5-5.1)
--- NOTE | 2016-12-01 07:41 | NUR ---
INITIAL PREFINISH OPERATOR NOTE RCVD PT AWAKE SHOWING NO S/O DISTRESS OR PAIN, DOES NOT VERBALIZE NEEDS. SR ON TELE. URBAN DRAINING YELLOW URINE. NG TUBE PLACEMENT VERIFIED BY AUSCULTATION. TOLERATING TUBE FEEDING RATE. JOSELYN PICC C/D/I/PATENT. NO S/O INFILTRATION OR PHLEBITIS OBSERVED. WILL CONTINUE TO MONITOR PT FOR SAFETY AND COMFORT. CALL LIGHT WITHIN REACH. BED IN LOW AND LOCKED POSITION.
[2016-12-01 08:00] VITALS: BP 142/63
[2016-12-01 09:08] LABS: BAND % (MANUAL) 5 % (0.0-5.0); LYMPHOCYTES % (MANUAL) 2 % (16-48); MONOCYTES % (MANUAL) 2 % (0-11.0); NEUTROPHILS % (MANUAL) 91 (42-76)
[2016-12-01] MEDS: HYDROCORTISONE SOD SUCCINATE 100 MG/2 ML VIAL IV SCH ×3 (09:20→16:17)
[2016-12-01] MEDS: ASPIRIN 81 MG TAB.CHEW GT SCH (09:20)
[2016-12-01] MEDS: LEVOTHYROXINE SODIUM 25 MCG TABLET PO SCH (09:20)
[2016-12-01] MEDS: LACTOBACILLUS RHAMNOSUS GG 1 EACH CAP.SPRINK GT SCH ×2 (09:21→16:18)
[2016-12-01] MEDS: AMIODARONE HCL 200 MG TABLET PO SCH ×2 (09:21→16:18)
[2016-12-01] MEDS: CHOLECALCIFEROL 1,000 UNIT TABLET (VIT D3) PO SCH (09:21)
[2016-12-01] MEDS: LINEZOLID 600 MG TABLET PO SCH ×2 (09:21→21:24)
[2016-12-01] MEDS: MULTIVIT, IRON, MIN NO. 8, FA 1 TAB TABLET PO SCH (09:21)
[2016-12-01] MEDS: FAMOTIDINE (20 MG) 20 MG TABLET PO SCH (09:21)
[2016-12-01] MEDS: PROSOURCE / PROSTAT (PYXIS) 30 ML UDC GT SCH (09:21)
[2016-12-01] MEDS: ENOXAPARIN SODIUM 30 MG/0.3 ML DISP.SYRIN SQ SCH (09:22)
[2016-12-01] MEDS: DAKINS QUARTER STRENGTH (0.125%) 480 ML BOTTLE TOP SCH (09:24)
[2016-12-01] MEDS: HYDROGEL DRESSING 90 GM TUBE TP SCH (09:24)
[2016-12-01 12:00] VITALS: BP_SYST 105; BP_SYST 133; BP_DIAS 68; BP_DIAS 70
[2016-12-01] MEDS ORDERED: NEUTRA PHOS 1 POWD.PACKET PO ONE (12:00)
--- NOTE | 2016-12-01 13:19 | NUR ---
MANAGER ARMY NOTE PER CX REPORT NEED TO ADVANCE NG TUBE 5CM, THIS WAS DONE, PLACEMENT WAS VERIFIED BY AUSCULTATION. NO RESIDUAL OBTAINED. WILL CONTINUE TO MONITOR. SPOKE WITH DR. BELTRAN THIS AM REGARDING PT'S POC. HE MENTIONED PT'S SON SIGNED POLST DECLINING ARTIFICIAL NUTRITION. SPOKE WITH PT'S SON, SHAHNAZ, HE STATED THAT HE WANTED TO SPEAK WITH PRIMARY. HE WAS GIVEN DR. COLLAZO'S PHONE # TO DISCUSS POC.
[2016-12-01] MEDS ORDERED: SECONDARY IV SET 1 EA INFUS.SET MC ONE (15:28)
[2016-12-01 16:00] VITALS: BP 142/69
--- NOTE | 2016-12-01 19:04 | NUR ---
ENDING LOSS PREVENTION MANAGER NOTE PT UNABLE TO VERBALIZE NEEDS, OPENS EYES. SR ON TELE. URBAN DRAINING JONATAN COLORED URINE, NG TUBE IN PLACE TOLERATING TUBE FEEDING. JOSELYN PICC C/D/I/PATENT NO S/O INFILTRATION OR PHLEBITIS OBSERVED. PT'S CARE WILL BE ENDORSED TO BAG INSPECTOR RN FOR CONTINUITY OF CARE. CALL LIGHT WITHIN REACH. BED IN LOW AND LOCKED POSITION.
--- NOTE | 2016-12-01 19:40 | NUR ---
RN OPENING NOTES RECEIVED REPORT FROM GEOVANNI RN. FOUND Pt ASLEEP IN BED. EQUAL CHEST RISE AND FALL. Pt IS A/OX1, MOSTLY NON-VERBAL, BUT IS KNOWN TO BE SELECTIVELY VERBAL. NO S/S OF ACUTE DISTRESS OR SOB NOTED. URBAN CATHETER IN PLACE. ON GT FEED FIBERSOURCE @50ML/HR. IV ACCESS ON JOSELYN PICC LINE, TKO. SAFETY MEASURES IN PLACE. BED LOW, LOCKED, HOB ELEVATED, SIDE RAILS UP, BED ALARM ON, CALL LIGHT AND BEDSIDE TABLE WITHIN REACH. WILL CONTINUE TO MONITOR Pt THROUGHOUT THE NIGHT.
[2016-12-01 20:00] VITALS: BP 133/54
[2016-12-01] MEDS: MICAFUNGIN SODIUM 100 MG in IV NS 0.9% 100 ML IV SCH (21:23)
[2016-12-01] MEDS: PANTOPRAZOLE 40 MG VIAL IV SCH (23:58)
[2016-12-02] VITALS: BP 137/59
[2016-12-02 04:00] VITALS: BP 125/56
[2016-12-02 06:24] LABS: HEMATOCRIT 22 % (33-45); HEMOGLOBIN 7.2 g/dL (11.5-14.8); LYMPHOCYTES % (AUTO) 8.3 % (20.0-44.0); MEAN CORPUSCULAR HEMOGLOBIN 30 PG (26.0-33.0); MEAN CORPUSCULAR HGB CONC 33 g/dl (31.0-36.0); MEAN CORPUSCULAR VOLUME 91 fL (82-100); MONOCYTES # (AUTO) 0.3 /CMM (0.1-1.30); MONOCYTES % (AUTO) 2.7 % (2.0-12.0); NEUTROPHILS # (AUTO) 10.7 /CMM (1.8-8.9); PLATELET COUNT (AUTO) 243 /CMM (150-450); RED BLOOD CELL COUNT(AUTO) 2.39 MIL/uL (4.0-5.2)
[2016-12-02 06:36] LABS: BILIRUBIN,TOTAL 0.6 mg/dL (0.2-1.0); CALCIUM, SERUM 7.7 mg/dL (8.5-10.1); CREATININE 0.5 mg/dL (0.6-1.3); POTASSIUM 3.8 mmol/L (3.5-5.1); TOTAL PROTEIN, SERUM 4.4 g/dL (6.4-8.2)
--- NOTE | 2016-12-02 06:45 | NUR ---
RN CLOSING NOTES NO SIGNIFICANT CHANGES. NO S/S OF ACUTE DISTRESS OR SOB NOTED. ALL NEEDS MET AND ATTENDED TO. SAFETY MEASURES CARRIED OUT. WILL ENDORSE TO DAYSHIFT RN FOR Pt's CANDELARIA.
--- NOTE | 2016-12-02 07:00 | NUR ---
RN NOTES RECEIVED PT ON BED, A/Ox1, NON VERBAL , RESPIRATION EVEN AND UNLABORED,ON O2 2L N/C , NO SOB NOTED, URBAN CATHETER DRAINING TO GRAVITY, FIBERSOURCE AT 50CC/HR RUNNING VIA R NARE NGT , TOLERATING WELL, NO RESIDUAL NOTED, R UA PICC LINE CDI, SAFETY MEASURES IN PLACE. BED LOW, LOCKED AND IN LOWEST POSITION , BED ALARM ON, CALL LIGHT WITHIN EASY REACH , WILL CONTINUE TO MONITOR PT CLOSELY AND NOTIFY MD FOR ANY SIGNIFICANT CHANGES
[2016-12-02 08:00] VITALS: BP 135/84
[2016-12-02] MEDS: PROSOURCE / PROSTAT (PYXIS) 30 ML UDC GT SCH (08:09)
[2016-12-02] MEDS: AMIODARONE HCL 200 MG TABLET PO SCH ×2 (08:10→16:31)
[2016-12-02] MEDS: ENOXAPARIN SODIUM 30 MG/0.3 ML DISP.SYRIN SQ SCH (08:11)
[2016-12-02] MEDS: LACTOBACILLUS RHAMNOSUS GG 1 EACH CAP.SPRINK GT SCH ×2 (08:12→16:31)
[2016-12-02] MEDS: FAMOTIDINE (20 MG) 20 MG TABLET PO SCH (08:12)
[2016-12-02] MEDS: ASPIRIN 81 MG TAB.CHEW GT SCH (08:12)
[2016-12-02] MEDS: MULTIVIT, IRON, MIN NO. 8, FA 1 TAB TABLET PO SCH (08:12)
[2016-12-02] MEDS: LEVOTHYROXINE SODIUM 25 MCG TABLET PO SCH (08:12)
[2016-12-02] MEDS: HYDROCORTISONE SOD SUCCINATE 100 MG/2 ML VIAL IV SCH (08:12)
[2016-12-02] MEDS: CHOLECALCIFEROL 1,000 UNIT TABLET (VIT D3) PO SCH (08:12)
[2016-12-02] MEDS: LINEZOLID 600 MG TABLET PO SCH ×2 (08:12→20:30)
[2016-12-02] MEDS: DAKINS QUARTER STRENGTH (0.125%) 480 ML BOTTLE TOP SCH (08:13)
[2016-12-02] MEDS: HYDROGEL DRESSING 90 GM TUBE TP SCH (08:13)
--- NOTE | 2016-12-02 12:00 | NUR ---
RN NOTES PT AT REST , NO DISTRESS NOTED, TOLERATING NGT FEEDING WELL, NO RESIDUAL NOTED, CONTINUE TO MONITOR .
[2016-12-02] MEDS ORDERED: NEUTRA PHOS 1 POWD.PACKET GT ONE (14:00)
[2016-12-02 16:00] VITALS: BP 145/76
--- NOTE | 2016-12-02 18:22 | NUR ---
RN NOTES PT REMAINS THE SAME , RESPIRATION EVEN AND UNLABORED, MEDICATED PER MD ORDER , NO SIGNIFICANT CHANGES NOTED ON THIS SHIFT .
--- NOTE | 2016-12-02 19:40 | NUR ---
MS/RN OPENING NOTES PT AWAKE, NON VERBAL. ON ROOM AIR, BREATHING EVEN AND UNLABORED WITH NO SIGNS OF SOB OR DISTRESS NOTED. NO FACIAL GRIMACING OR SIGNS OF PAIN NOTED. NGT FEEDING TO LEFT NARE RUNNING FIBERSOURCE AT 50ML/HR. NO RESIDUAL NOTED. JOSELYN PICC LINE PATENT AND INTACT WITH IVF RUNNING TKO. EXTREMITIES OFFLOADED, HOB ELEVATED. BED IN LOW/LOCKED POSITION WITH CALL LIGHT IN REACH. BED RAILS UP. WILL CONTINUE TO MONITOR
[2016-12-02 20:00] VITALS: BP_SYST 140; BP_SYST 145; BP_DIAS 65; BP_DIAS 76
[2016-12-02] MEDS: MICAFUNGIN SODIUM 100 MG in IV NS 0.9% 100 ML IV SCH (20:29)
[2016-12-02] MEDS: PANTOPRAZOLE 40 MG VIAL IV SCH (23:10)
--- NOTE | 2016-12-03 03:00 | NUR ---
MS/RN NOTES PT ASLEEP INTERMITTENTLY. BREATHING EVEN AND UNLABORED. NO DISTRESS NOTED. WILL CONTINUE TO MONITOR
[2016-12-03 04:00] VITALS: BP 147/89
[2016-12-03] MEDS: FIBERSOURCE HN 1,000 ML BOTTLE GT PRN (06:39)
[2016-12-03 06:44] LABS: EOSINOPHILS % (AUTO) 0.1 % (0.0-6.0); HEMATOCRIT 21 % (33-45); HEMOGLOBIN 7.1 g/dL (11.5-14.8); LYMPHOCYTES # (AUTO) 2.8 /CMM (0.8-4.8); LYMPHOCYTES % (AUTO) 16.1 % (20.0-44.0); MEAN CORPUSCULAR HEMOGLOBIN 30 PG (26.0-33.0); MEAN CORPUSCULAR HGB CONC 33 g/dl (31.0-36.0); MEAN CORPUSCULAR VOLUME 91 fL (82-100); MONOCYTES # (AUTO) 0.1 /CMM (0.1-1.30); MONOCYTES % (AUTO) 0.6 % (2.0-12.0); NEUTROPHILS # (AUTO) 14.8 /CMM (1.8-8.9); NEUTROPHILS % (AUTO) 83.2 % (43.0-81.0); PLATELET COUNT (AUTO) 232 /CMM (150-450); RDW COEFFICIENT OF VARIATION 15.5 (11.5-15.0); RED BLOOD CELL COUNT(AUTO) 2.33 MIL/uL (4.0-5.2); WHITE BLOOD COUNT (AUTO) 17.7 K/uL (4.3-11.0)
[2016-12-03 06:51] LABS: CREATININE 0.5 mg/dL (0.6-1.3); PHOSPHORUS 2.3 mg/dL (2.5-4.9); POTASSIUM 3.2 mmol/L (3.5-5.1)
--- NOTE | 2016-12-03 07:24 | NUR ---
MS/RN CLOSING NOTES PT ASLEEP, OPENS EYES. NON VERBAL, ONLY SAID YES UPON ASKING IF SHE WAS COLD. ON 2LPM O2 VIA NC, BREATHING EVEN AND UNLABORED. NO S/S OF SOB, DISTRESS. NO FACIAL GRIMACING OR SIGNS OF PAIN NOTED. L NARE NGT RUNNING FIBERSOURCE AT 50ML/HR. NO RESIDUAL NOTED. URBAN IN PLACE AND DRAINING WELL. JOSELYN PICC LINE RUNNING NS TKO. BED IN LOW/LOCKED POSITION, CALL LIGHT IN REACH. WOUND CARE PROVIDED. TURNED/REPOSITIONED Q2H. MADE PT COMFORTABLE THROUGHOUT SHIFT. ENDORSED TO AM SHIFT CANDELARIA.
[2016-12-03 07:48] LABS: LYMPHOCYTES % (MANUAL) 10 % (16-48); MONOCYTES % (MANUAL) 1 % (0-11.0); NEUTROPHILS % (MANUAL) 89 (42-76)
[2016-12-03 08:00] VITALS: BP 158/67
[2016-12-03] MEDS: MULTIVIT, IRON, MIN NO. 8, FA 1 TAB TABLET PO SCH (08:51)
[2016-12-03] MEDS: LACTOBACILLUS RHAMNOSUS GG 1 EACH CAP.SPRINK GT SCH ×2 (08:51→16:14)
[2016-12-03] MEDS: PANTOPRAZOLE 40 MG VIAL IV SCH (08:51)
[2016-12-03] MEDS: FAMOTIDINE (20 MG) 20 MG TABLET PO SCH (08:51)
[2016-12-03] MEDS: CHOLECALCIFEROL 1,000 UNIT TABLET (VIT D3) PO SCH (08:52)
[2016-12-03] MEDS: HYDROCORTISONE SOD SUCCINATE 100 MG/2 ML VIAL IV SCH (08:52)
[2016-12-03] MEDS: PROSOURCE / PROSTAT (PYXIS) 30 ML UDC GT SCH (08:53)
[2016-12-03] MEDS: ASPIRIN 81 MG TAB.CHEW GT SCH (08:53)
[2016-12-03] MEDS: LINEZOLID 600 MG TABLET PO SCH ×2 (08:53→21:33)
[2016-12-03] MEDS: AMIODARONE HCL 200 MG TABLET PO SCH ×2 (08:53→16:14)
[2016-12-03] MEDS: LEVOTHYROXINE SODIUM 25 MCG TABLET PO SCH (08:53)
[2016-12-03] MEDS: ENOXAPARIN SODIUM 30 MG/0.3 ML DISP.SYRIN SQ SCH (08:57)
[2016-12-03] MEDS: DAKINS QUARTER STRENGTH (0.125%) 480 ML BOTTLE TOP SCH (09:00)
[2016-12-03] MEDS: HYDROGEL DRESSING 90 GM TUBE TP SCH (09:00)
[2016-12-03] MEDS ORDERED: POTASSIUM CHLORIDE 20 MEQ POWDER PACKET GT ONE (10:00)
[2016-12-03 12:00] VITALS: BP 158/67
[2016-12-03] MEDS ORDERED: NEUTRA PHOS 1 POWD.PACKET GT ONE (12:00)
--- NOTE | 2016-12-03 16:15 | NUR ---
FITNESS LEADER GOES INTO ROOM TO DO CARE AND NOTED TRAV BLEEDING IN CATHER...B/P=166/74, PT ALERT AND TRACKING, P=77. 02 SAT=94, COLOR PINK...DR TOMLIN PAGED AND RETURNS CALL PROMPLTY...NEW ORDERS RCVD TO HOLD ALL ASPIRIN AND ALL ANTICOAGULANTS, LAVAGE URBAN UNTIL CLEAR AND TRANSFUSE 2 UNITS prbc's....charge nurse informed
[2016-12-03] MEDS ORDERED: IV NS 0.9% 500 ML IV ONE (16:19)
[2016-12-03 17:26] VITALS: BP 166/70
--- NOTE | 2016-12-03 19:00 | NUR ---
MS-1/ANKIT SPOKE WITH BLOOD BANK REGARDING BLOOD TRANSFUSION. PT IS POSITIVE FOR ANTIBODIES. BLOOD NEEDS TO BE SENT FROM [facility]. WILL FOLLOW UP.
[2016-12-03] MEDS: MICAFUNGIN SODIUM 100 MG in IV NS 0.9% 100 ML IV SCH (19:43)
[2016-12-03 20:00] VITALS: BP 135/75
[2016-12-03] MEDS ORDERED: IV SET PRIMARY 1 EA INFUS.SET MC ONE (20:02)
--- NOTE | 2016-12-03 20:40 | NUR ---
MS-1/TOWEL SORTER URBAN CATH REMOVED. 3-WAY URBAN CATH PLACED BY MYSELF VIA STERILE PROCEDURE. PT TOLERATED WELL. CONT. CATH IRRIGATION SET UP TO GRAVITY. BLOOD TINGED URINE EMPTYING TO COLLECTION BAG. WILL CONTINUE TO MONITOR.
--- NOTE | 2016-12-03 22:41 | NUR ---
MS-1/CRATE ICER BLOOD STILL BEING WORKED UP FOR ANTIBODIES. LAB SAID THEY WOULD CALL WHEN IT'S READY.
[2016-12-03] MEDS ORDERED: BLOOD IV SET 1 EA INFUS.SET MC ONE (23:12)
[2016-12-03] MEDS ORDERED: IV NS 0.9% 250 ML IV ONE (23:12)
[2016-12-03 23:43] VITALS: BP 143/77
[2016-12-04] VITALS (10 sets, daily range): BP systolic 135–172; BP diastolic 53–84
[2016-12-04] MEDS ORDERED: IV SET PRIMARY PUMP SET 1 EA INFUS.SET MC ONE (05:19)
[2016-12-04] MEDS: FIBERSOURCE HN 1,000 ML BOTTLE GT PRN (05:36)
[2016-12-04] MEDS: IV NS 0.9% 250 ML IV PRN (05:36)
[2016-12-04 06:39] LABS: HEMATOCRIT 30 % (33-45); HEMOGLOBIN 10.3 g/dL (11.5-14.8); MEAN CORPUSCULAR HEMOGLOBIN 29 PG (26.0-33.0); MEAN CORPUSCULAR HGB CONC 34 g/dl (31.0-36.0); MEAN CORPUSCULAR VOLUME 83 fL (82-100); PLATELET COUNT (AUTO) 178 /CMM (150-450); RDW COEFFICIENT OF VARIATION 21.7 (11.5-15.0); RED BLOOD CELL COUNT(AUTO) 3.61 MIL/uL (4.0-5.2); WHITE BLOOD COUNT (AUTO) 16.8 K/uL (4.3-11.0)
[2016-12-04 06:48] LABS: CALCIUM, SERUM 7.8 mg/dL (8.5-10.1); CREATININE 0.5 mg/dL (0.6-1.3); MAGNESIUM 1.8 mg/dL (1.8-2.4); PHOSPHORUS 2.2 mg/dL (2.5-4.9); POTASSIUM 3.7 mmol/L (3.5-5.1)
[2016-12-04] MEDS: LEVOTHYROXINE SODIUM 25 MCG TABLET PO SCH (07:30)
[2016-12-04 08:21] LABS: BAND % (MANUAL) 1 % (0.0-5.0); EOSINOPHILS % (MANUAL) 1 % (0-4); LYMPHOCYTES % (MANUAL) 10 % (16-48); MONOCYTES % (MANUAL) 3 % (0-11.0); NEUTROPHILS % (MANUAL) 85 (42-76)
[2016-12-04] MEDS: HYDROGEL DRESSING 90 GM TUBE TP SCH (09:00)
[2016-12-04] MEDS: DAKINS QUARTER STRENGTH (0.125%) 480 ML BOTTLE TOP SCH (09:00)
[2016-12-04] MEDS: PROSOURCE / PROSTAT (PYXIS) 30 ML UDC GT SCH (10:01)
[2016-12-04] MEDS: PANTOPRAZOLE 40 MG VIAL IV SCH (10:01)
[2016-12-04] MEDS: AMIODARONE HCL 200 MG TABLET PO SCH ×2 (10:06→17:00)
[2016-12-04] MEDS: LINEZOLID 600 MG TABLET PO SCH (10:06)
[2016-12-04] MEDS: MULTIVIT, IRON, MIN NO. 8, FA 1 TAB TABLET PO SCH (10:07)
[2016-12-04] MEDS: CHOLECALCIFEROL 1,000 UNIT TABLET (VIT D3) PO SCH (10:07)
[2016-12-04] MEDS: FAMOTIDINE (20 MG) 20 MG TABLET PO SCH (10:07)
[2016-12-04] MEDS: LACTOBACILLUS RHAMNOSUS GG 1 EACH CAP.SPRINK GT SCH ×2 (10:08→17:00)
[2016-12-04] MEDS ORDERED: NEUTRA PHOS 1 POWD.PACKET GT ONE (14:00)
--- NOTE | 2016-12-04 15:30 | NUR ---
PT PENDING D/C TO [facility]...PICC LINE D/C'D...NO HEMATOMA NOTED...URBAN AND JUNIOR D/C'D PT TOLERATED WELL. WILL CALL REPORT. PT IN STABLE CONDITION
--- NOTE | 2016-12-04 17:33 | NUR ---
REPORT CALLED TO FACILITY...SPOKE WITH FRANCISCO SIMPSON RN...PT IN STABLE CONDITION...WAITING FOR TRANSPORTATION AT THIS TIME
== END 2016-12-04 18:14 | DRG 853 ==
LOC: ER 21:15 → TELE 22:52 → ICU 11-20 08:55 → TELE-TD 11-27 21:56 → TELE1 11-29 20:27 → MEDSG1 12-02 09:11
PROVIDERS: ADMIT Internal Medicine; ATTEND Internal Medicine
PROC: 02HV33Z Insertion of Infusion Device into Superior Vena Cava, Percutaneous Approach (ICD-10-PCS; 2016-11-21)
PROC: B548ZZA Ultrasonography of Superior Vena Cava, Guidance (ICD-10-PCS; 2016-11-21)
PROC: 0QB10ZZ Excision of Sacrum, Open Approach (ICD-10-PCS; principal; 2016-11-23)
PROC: 0W993ZZ Drainage of Right Pleural Cavity, Percutaneous Approach (ICD-10-PCS; 2016-11-24)
PROC: 30233N1 Transfusion of Nonautologous Red Blood Cells into Peripheral Vein, Percutaneous Approach (ICD-10-PCS; 2016-11-28)
DX: A41.9 Sepsis, unspecified organism (principal); J96.01 Acute respiratory failure with hypoxia; I21.4 Non-ST elevation (NSTEMI) myocardial infarction; N17.0 Acute kidney failure with tubular necrosis; R65.21 Severe sepsis with septic shock; J69.0 Pneumonitis due to inhalation of food and vomit; J90 Pleural effusion, not elsewhere classified; L89.154 Pressure ulcer of sacral region, stage 4; R13.10 Dysphagia, unspecified; E87.8 Other disorders of electrolyte and fluid balance, not elsewhere classified; E87.0 Hyperosmolality and hypernatremia; N39.0 Urinary tract infection, site not specified; I48.92 Unspecified atrial flutter; F03.90 Unspecified dementia, unspecified severity, without behavioral disturbance, psychotic disturbance, mood disturbance, and anxiety; Z66 Do not resuscitate; E86.0 Dehydration; E03.9 Hypothyroidism, unspecified; E83.39 Other disorders of phosphorus metabolism; E83.42 Hypomagnesemia; I48.0 Paroxysmal atrial fibrillation; K21.9 Gastro-esophageal reflux disease without esophagitis; R62.7 Adult failure to thrive; D64.9 Anemia, unspecified; E87.6 Hypokalemia; F09 Unspecified mental disorder due to known physiological condition; E86.9 Volume depletion, unspecified; I48.91 Unspecified atrial fibrillation; L89.621 Pressure ulcer of left heel, stage 1; L89.891 Pressure ulcer of other site, stage 1; S80.12XA Contusion of left lower leg, initial encounter; S80.11XA Contusion of right lower leg, initial encounter; X58.XXXA Exposure to other specified factors, initial encounter; Y93.9 Activity, unspecified; Y92.129 Unspecified place in nursing home as the place of occurrence of the external cause; R23.4 Changes in skin texture; R60.0 Localized edema; Z68.20 Body mass index [BMI] 20.0-20.9, adult
CPT/HCPCS: 36415; 36569; 36600; 71010-TC; 76942-TC; 80048-TC; 80053-TC; 80076-TC; 80202-TC; 81000-TC; 82272-TC; 82306; 82378; 82533; 82728-TC; 82746; 83010; 83540-TC; 83605-TC; 83615-TC; 83735-TC; 83880; 83935-TC; 84100-TC; 84155; 84165; 84300-TC; 84439-TC; 84443-TC; 84484-TC; 84550-TC; 85025-TC; 85027-TC; 85045-TC; 85378-TC; 85652-TC; 85730-TC; 86850-TC; 86921-TC; 87040-TC; 87070-TC; 87075-TC; 87081-TC; 87086-TC; 87102-TC; 89051-TC; 92526; 92611-TC; 93307-TC; 94003-TC; 94799-TC; A4216; A4217; A4606; A6248; A6253; A6402; A6403; A9563; C1751; C9113; J0282; J1160; J1644; J1650; J1720; J2185; J2248; J2370; J2543; J3370; J3475; J3480; J3490; J7030; J7040; J7050; J7060; J7070; P9016-BL; P9047; Q9967; Z7610